=== PATIENT | female | born 1990 | race Caucasian/White ===

== ENCOUNTER 2017-06-19 10:29 | Emergency (ER) | payer MEDICAID ==
[~2017-06-19] VITALS: Ht 165.1 cm; Wt 74.1 kg
[~2017-06-19 10:29] MED LIST: NO HOME MEDS
[2017-06-19] MEDS ORDERED: normal saline 1000ML IV soln IVB ONE (12:15)
[2017-06-19 12:28] LABS: BASOPHILS % (AUTO) 0.6 % (0-1); EOSINOPHILS # (AUTO) 0.1 X10'3 (0-0.9); EOSINOPHILS % (AUTO) 1.9 % (0-6); HEMATOCRIT 42.9 % (35.0-45.0); HEMOGLOBIN 14.8 g/dl (12.0-16.0); LYMPHOCYTES # (AUTO) 2.2 X10'3 (1.1-4.8); LYMPHOCYTES % (AUTO) 28.4 % (21-51); MEAN CORPUSCULAR HGB CONC 34.6 % (33.0-36.5); MEAN CORPUSCULAR VOLUME 98.2 FL (78-98); MEAN PLATELET VOLUME 7.3 FL (7.4-10.4); MONOCYTES # (AUTO) 0.8 X10'3 (0-0.9); MONOCYTES % (AUTO) 10.1 % (2-12); NEUTROPHILS # (AUTO) 4.5 X10'3 (1.8-7.7); PLATELET COUNT 297 X10'3 (140-440); RED BLOOD COUNT 4.37 X10'6 (4.20-5.60); RED CELL DISTRIBUTION WIDTH 12.9 % (11.5-14.5); WHITE BLOOD COUNT 7.7 X10'3 (4.5-11.0)
[2017-06-19 12:48] LABS: D-DIMER < 0.19 MG/L FEU (0-0.50)
[2017-06-19 12:54] LABS: ALANINE AMINOTRANSFERASE 347 U/L (12-78); ALBUMIN 4.3 G/DL (3.4-5.0); ALBUMIN/GLOBULIN RATIO 0.9 (1.1-1.5); ALKALINE PHOSPHATASE 96 IU/L (46-116); ANION GAP 11 (8-16); ASPARTATE AMINO TRANSFERASE 148 U/L (10-37); BILIRUBIN,TOTAL 1.1 MG/DL (0.1-1.0); BLOOD UREA NITROGEN 11 MG/DL (7-18); BUN/CREATININE RATIO 12.9 (6.6-38.0); CALCIUM 9.6 MG/DL (8.5-10.1); CHLORIDE 99 MMOL/L (99-107); CREATININE 0.85 MG/DL (0.40-0.90); ETHANOL < 0.010 GM/DL (0.0-0.010); GLUCOSE 93 MG/DL (70-104); POTASSIUM 3.9 MMOL/L (3.5-5.1); SODIUM 136 MMOL/L (135-145); TOTAL CARBON DIOXIDE 25.7 MMOL/L (24-32); TOTAL PROTEIN 8.9 G/DL (6.4-8.2); eGFR 81 ML/MIN
[2017-06-19 13:32] VITALS: BP 122/80
[2017-06-19 13:53] LABS: URINE AMPHETAMINE SCREEN POSITIVE (Neg); URINE BARBITUATE SCREEN NEGATIVE (Neg); URINE BENZODIAZEPINES SCREEN NEGATIVE (Neg); URINE CANNABINOID SCREEN NEGATIVE (Neg); URINE COCAINE SCREEN NEGATIVE (Neg); URINE METHADONE SCREEN NEGATIVE (Neg); URINE OPIATE SCREEN NEGATIVE (Neg); URINE PHENCYCLIDINE SCREEN NEGATIVE (Neg)
== END 2017-06-19 13:59 | disposition home or self-care (01) ==
LOC: ER 10:29
DX: R00.2 Palpitations (principal); F12.10 Cannabis abuse, uncomplicated; F15.10 Other stimulant abuse, uncomplicated
CPT/HCPCS: 36415; 71045; 80053; 80305; 80320; 84439; 84443; 84484; 85025; 85379; 93005; 96360; 99285; J7030

== ENCOUNTER 2018-05-11 10:17 | Emergency (ER) | payer MEDICAID ==
[2018-05-11 11:39] LABS: HEMATOCRIT 38.3 % (35.0-45.0); HEMOGLOBIN 12.8 g/dl (12.0-16.0); MEAN CORPUSCULAR HEMOGLOBIN 32.3 PG (27.0-31.0); MEAN CORPUSCULAR HGB CONC 33.5 g/dL (33.0-36.5); MEAN CORPUSCULAR VOLUME 96.5 FL (78-98); MEAN PLATELET VOLUME 7.3 FL (7.4-10.4); PLATELET COUNT 310 X10'3 (140-440); RED BLOOD COUNT 3.97 X10'6 (4.20-5.60); RED CELL DISTRIBUTION WIDTH 15.3 % (11.5-14.5); WHITE BLOOD COUNT 7.4 X10'3 (4.5-11.0)
[2018-05-11 13:31] VITALS: BP 104/60
[2018-05-11 13:52] LABS: URINE HCG NEGATIVE (NEG)
[2018-05-11 14:14] LABS: CLARITY,URINE SLIGHTLY CLOUDY (Clear); GLUCOSE, URINE NEGATIVE (Neg); KETONES,URINE NEGATIVE (Neg); LEUKOCYTE ESTERASE ,URINE NEGATIVE (Neg); NITRITES, URINE NEGATIVE (Neg); OCCULT BLOOD,URINE LARGE (Neg); PH,URINE 6.5 (4.8-8.0); PROTEIN,URINE 30 mg/dl (Neg)
[2018-05-11 14:34] LABS: COLOR,URINE Brown (Yellow); UA COLLECTION TYPE CLN CATCH MIDSTREAM
[2018-05-11 14:36] LABS: WBC,URINE 30-50 /HPF (0-4)
[2018-05-11 14:37] LABS: BACTERIA,URINE 1+ /HPF (Neg); RBC,URINE 20-50 /HPF (0-2); SQUAMOUS EPITHELIAL CELL,UR MODERATE /LPF (FEW); WBC CLUMPS,URINE MODERATE /HPF (NEGATIVE)
[2018-05-11] MEDS ORDERED: PHEN-716 PO (15:00)
[2018-05-11] MEDS ORDERED: NITR100C6 PO (15:00)
== END 2018-05-11 15:11 | disposition home or self-care (01) ==
LOC: ER 10:17
DX: N39.0 Urinary tract infection, site not specified (principal); N93.9 Abnormal uterine and vaginal bleeding, unspecified; M79.10 Myalgia, unspecified site; F15.90 Other stimulant use, unspecified, uncomplicated; F12.90 Cannabis use, unspecified, uncomplicated; Z87.440 Personal history of urinary (tract) infections
CPT/HCPCS: 36415; 81001; 81025; 85027; 87088; 99283

== ENCOUNTER 2018-08-10 18:08 | Emergency (ER) | payer MEDICAID, OTHER ==
[~2018-08-10] VITALS: Ht 165.1 cm; Wt 54.5 kg
[~2018-08-10 18:08] MED LIST changes: +NITR100C6 PO; +PHEN-716 PO
[2018-08-10 23:23] LABS: URINE HCG NEGATIVE (NEG)
[2018-08-10 23:24] LABS: CLARITY,URINE SLIGHTLY CLOUDY (Clear); COLOR,URINE YELLOW (Yellow); GLUCOSE, URINE NEGATIVE (Neg); KETONES,URINE TRACE mg/dl (Neg); LEUKOCYTE ESTERASE ,URINE NEGATIVE (Neg); NITRITES, URINE NEGATIVE (Neg); OCCULT BLOOD,URINE NEGATIVE (Neg); PROTEIN,URINE NEGATIVE (Neg)
[2018-08-10 23:40] VITALS: BP 99/56
[2018-08-10 23:47] LABS: UA COLLECTION TYPE CLN CATCH MIDSTREAM
[2018-08-10 23:49] LABS: BACTERIA,URINE NONE SEEN /HPF (Neg); CAL OXALATE CRYSTALS 2+ /HPF (NEGATIVE); MUCUS STRANDS FEW /LPF (Neg); RBC,URINE 0-2 /HPF (0-2); SQUAMOUS EPITHELIAL CELL,UR MANY /LPF (FEW); WBC,URINE 0-4 /HPF (0-4)
[2018-08-11] MEDS ORDERED: LORA1TAB PO (18:43)
== END 2018-08-11 00:17 | disposition home or self-care (01) ==
LOC: ER 18:09
DX: E86.0 Dehydration (principal); M54.5 Low back pain; R30.0 Dysuria; R50.9 Fever, unspecified; F12.90 Cannabis use, unspecified, uncomplicated; F15.90 Other stimulant use, unspecified, uncomplicated; Z79.899 Other long term (current) drug therapy; Z59.0 Homelessness
CPT/HCPCS: 81001; 81025; 99283

== ENCOUNTER 2018-08-11 18:16 | Emergency (ER) | payer MEDICAID, OTHER ==
[~2018-08-11] VITALS: Ht 165.1 cm; Wt 62.5 kg
[2018-08-11 18:22] VITALS: BP 115/62
[2018-08-11] MEDS ORDERED: LORA1TAB PO (18:43)
== END 2018-08-11 18:55 | disposition home or self-care (01) ==
LOC: ER 18:17
DX: F15.10 Other stimulant abuse, uncomplicated (principal); F12.90 Cannabis use, unspecified, uncomplicated; Z79.899 Other long term (current) drug therapy
CPT/HCPCS: 99283

== ENCOUNTER 2018-08-19 02:54 | Emergency (ER) | payer MEDICAID, OTHER ==
[~2018-08-19] VITALS: Ht 165.1 cm; Wt 58.0 kg
[2018-08-19 02:58] VITALS: BP 111/66
--- NOTE | 2018-08-19 03:11 | NUR ---
DR. PASTRANA AT BEDSIDE. NOT BRUISING NOTED TO BACK. PT REPORTS USING METH "BUT NOT THAT OFTEN". SUGGESTED TO PT THAT SHE IS HAVING PARANOIA FROM THE METH. PT WALKED OUT PRIOR TO DC.
== END 2018-08-19 03:21 | disposition home or self-care (01) ==
LOC: ER 02:54
DX: S30.0XXA Contusion of lower back and pelvis, initial encounter (principal); L98.9 Disorder of the skin and subcutaneous tissue, unspecified; F12.90 Cannabis use, unspecified, uncomplicated; F15.90 Other stimulant use, unspecified, uncomplicated; Z79.899 Other long term (current) drug therapy; X58.XXXA Exposure to other specified factors, initial encounter; Y93.89 Activity, other specified; Y92.89 Other specified places as the place of occurrence of the external cause; Y99.8 Other external cause status
CPT/HCPCS: 99281

== ENCOUNTER 2018-08-28 01:30 | Emergency (ER) | payer MEDICAID, OTHER ==
[~2018-08-28] VITALS: Ht 165.1 cm; Wt 57.1 kg
[2018-08-28] MEDS ORDERED: HYDR25SU32 RC (02:22)
[2018-08-28 02:40] VITALS: BP 111/75
[2018-08-28 02:58] LABS: OCCULT BLOOD STOOL POSITIVE (Neg)
== END 2018-08-28 02:50 | disposition home or self-care (01) ==
LOC: ER 01:31
DX: K62.5 Hemorrhage of anus and rectum (principal); M54.5 Low back pain; R10.30 Lower abdominal pain, unspecified; F12.10 Cannabis abuse, uncomplicated; F15.10 Other stimulant abuse, uncomplicated
CPT/HCPCS: 82272; 99283

== ENCOUNTER 2018-08-29 20:00 | Emergency (ER) | payer MEDICAID, OTHER ==
[~2018-08-29] VITALS: Ht 162.6 cm; Wt 55.0 kg
[~2018-08-29 20:00] MED LIST changes: +HYDR25SU32 RC
[2018-08-29 20:03] VITALS: BP 104/72
--- NOTE | 2018-08-29 20:39 | NUR ---
Patient irratic and running around saying she needs help and an IV as her jaw is falling off. She states she has taken meth. Security is at the bedside.
--- NOTE | 2018-08-29 20:49 | NUR ---
Patient LWAB as provider AROLDO Gudino was trying to see her.
--- NOTE | 2018-08-29 20:49 | NUR ---
Patient LWAB as provider na
== END 2018-08-29 20:51 | disposition left against medical advice (07) ==
LOC: ER 20:00
DX: R07.0 Pain in throat (principal); Z53.21 Procedure and treatment not carried out due to patient leaving prior to being seen by health care provider; Z79.899 Other long term (current) drug therapy

== ENCOUNTER 2019-02-16 22:37 | Emergency (ER) | payer OTHER ==
[~2019-02-16] VITALS: Ht 165.1 cm; Wt 52.3 kg
[2019-02-16 22:42] VITALS: BP 125/84
[2019-02-16] MEDS ORDERED: GRIS500T7 PO (22:52)
== END 2019-02-16 23:05 | disposition home or self-care (01) ==
LOC: ER 22:39
DX: B35.0 Tinea barbae and tinea capitis (principal); F31.9 Bipolar disorder, unspecified; F12.90 Cannabis use, unspecified, uncomplicated; F15.90 Other stimulant use, unspecified, uncomplicated; F10.99 Alcohol use, unspecified with unspecified alcohol-induced disorder; Z79.899 Other long term (current) drug therapy; Y90.9 Presence of alcohol in blood, level not specified
CPT/HCPCS: 99283

== ENCOUNTER 2019-02-28 10:59 | Emergency (ER) | payer OTHER ==
[~2019-02-28 10:59] MED LIST changes: +GRIS500T7 PO
[2019-02-28] MEDS ORDERED: CIPR7.5D EACH EAR (15:41)
[2019-02-28] MEDS ORDERED: CIPR-230 PO (15:41)
[2019-02-28] MEDS ORDERED: SULF1TAB49 PO (15:41)
== END 2019-02-28 11:50 | disposition left against medical advice (07) ==
LOC: ER 11:00
DX: H92.09 Otalgia, unspecified ear (principal); Z53.21 Procedure and treatment not carried out due to patient leaving prior to being seen by health care provider

== ENCOUNTER 2019-02-28 13:51 | Emergency (ER) | payer OTHER ==
[~2019-02-28] VITALS: Ht 165.1 cm; Wt 50.0 kg
[~2019-02-28 13:51] MED LIST changes: +LIDOcaine 1% W/epiNEPHrine 1:100,000 20ml vial ONE
[2019-02-28 14:11] VITALS: BP 124/74
[2019-02-28] MEDS ORDERED: Cipro HC otic suspension 10ML bottle EACH EAR STA (15:17)
[2019-02-28] MEDS ORDERED: CIPR-230 PO (15:41)
[2019-02-28] MEDS ORDERED: CIPR7.5D EACH EAR (15:41)
[2019-02-28] MEDS ORDERED: SULF1TAB49 PO (15:41)
== END 2019-02-28 16:13 | disposition home or self-care (01) ==
LOC: ER 13:51
DX: L02.811 Cutaneous abscess of head [any part, except face] (principal); H60.93 Unspecified otitis externa, bilateral; H60.02 Abscess of left external ear; F15.10 Other stimulant abuse, uncomplicated; F31.9 Bipolar disorder, unspecified; F12.90 Cannabis use, unspecified, uncomplicated; F10.99 Alcohol use, unspecified with unspecified alcohol-induced disorder; Z79.899 Other long term (current) drug therapy; Z59.0 Homelessness; Y90.9 Presence of alcohol in blood, level not specified
CPT/HCPCS: 10061; 99284

== ENCOUNTER 2019-02-28 19:21 | Emergency (ER) | payer OTHER ==
[~2019-02-28] VITALS: Ht 165.1 cm; Wt 49.0 kg
[~2019-02-28 19:21] MED LIST changes: +CIPR-230 PO; +CIPR7.5D EACH EAR; -LIDOcaine 1% W/epiNEPHrine 1:100,000 20ml vial ONE; +SULF1TAB49 PO
[2019-02-28 19:46] VITALS: BP 111/46
[2019-02-28] MEDS ORDERED: ciprofloxacin 250mg tablet PO ONE (20:00)
[2019-02-28] MEDS ORDERED: sulfamethoxazole/trimethoprim DS (800/160mg) tablet PO ONE (20:00)
[2019-02-28] MEDS ORDERED: LORazepam 0.5 MG tablet PO ONE (20:30)
--- NOTE | 2019-02-28 20:30 | NUR ---
pt was here a few hours ago for same thing. pt hyper and nervous stating, my wounds is getting bigger.,
== END 2019-02-28 22:24 | disposition home or self-care (01) ==
LOC: ER 19:23
DX: L02.11 Cutaneous abscess of neck (principal); H60.93 Unspecified otitis externa, bilateral; F31.9 Bipolar disorder, unspecified; F41.9 Anxiety disorder, unspecified; F12.90 Cannabis use, unspecified, uncomplicated; F15.90 Other stimulant use, unspecified, uncomplicated; F10.99 Alcohol use, unspecified with unspecified alcohol-induced disorder; Z79.899 Other long term (current) drug therapy; Y90.9 Presence of alcohol in blood, level not specified
CPT/HCPCS: 99283

== ENCOUNTER 2019-12-05 17:59 | Emergency (ER) | payer MEDICAID ==
[~2019-12-05] VITALS: Ht 165.1 cm; Wt 85.0 kg
[~2019-12-05 17:59] MED LIST changes: -CIPR-230 PO; -SULF1TAB49 PO
[2019-12-05 18:18] VITALS: BP 112/63
[2019-12-05] MEDS ORDERED: diphenhydrAMINE 2%/zinc acetate cream TP STA (18:45)
[2019-12-05] MEDS ORDERED: mupirocin 2% ointment 22GM TP STA (18:45)
== END 2019-12-05 19:14 | disposition home or self-care (01) ==
LOC: ER 17:59
DX: T79.9XXA Unspecified early complication of trauma, initial encounter (principal); L29.9 Pruritus, unspecified; R21 Rash and other nonspecific skin eruption; F31.9 Bipolar disorder, unspecified; F12.90 Cannabis use, unspecified, uncomplicated; F15.90 Other stimulant use, unspecified, uncomplicated; Z72.89 Other problems related to lifestyle; Z79.899 Other long term (current) drug therapy
CPT/HCPCS: 99282; 99283

== ENCOUNTER 2021-06-05 18:51 | Inpatient (IN) | payer MEDICAID ==
[~2021-06-05] VITALS: Ht 162.6 cm; Wt 56.8 kg
[2021-06-05 19:58] LABS: BASOPHILS % (AUTO) 0.7 % (0-1); EOSINOPHILS # (AUTO) 0.2 X10'3 (0-0.9); EOSINOPHILS % (AUTO) 3.5 % (0-6); HEMATOCRIT 43.1 % (35.0-45.0); HEMOGLOBIN 14.7 g/dl (12.0-16.0); LYMPHOCYTES # (AUTO) 2.1 X10'3 (1.1-4.8); MEAN CORPUSCULAR HGB CONC 34.1 g/dL (33.0-36.5); MEAN CORPUSCULAR VOLUME 96.8 FL (78-98); MONOCYTES # (AUTO) 0.7 X10'3 (0-0.9); NEUTROPHILS # (AUTO) 3.1 X10'3 (1.8-7.7); NEUTROPHILS % (AUTO) 49.8 % (42-75); PLATELET COUNT 429 X10'3 (140-440); RED BLOOD COUNT 4.46 X10'6 (4.20-5.60); WHITE BLOOD COUNT 6.1 X10'3 (4.5-11.0)
[2021-06-05 20:24] LABS: ALANINE AMINOTRANSFERASE 19 U/L (12-78); ALBUMIN 3.4 G/DL (3.4-5.0); ALBUMIN/GLOBULIN RATIO 0.7 (1.1-1.5); ALKALINE PHOSPHATASE 90 IU/L (46-116); ANION GAP 9 (8-16); ASPARTATE AMINO TRANSFERASE 18 U/L (10-37); BILIRUBIN,TOTAL 0.5 MG/DL (0.1-1.0); BLOOD UREA NITROGEN 8 MG/DL (7-18); BUN/CREATININE RATIO 10.5 (6.6-38.0); CALCIUM 9.5 MG/DL (8.5-10.1); CHLORIDE 104 MMOL/L (99-107); CREATININE 0.76 MG/DL (0.40-0.90); GLUCOSE 116 MG/DL (70-104); SODIUM 139 MMOL/L (135-145); TOTAL CARBON DIOXIDE 26.2 MMOL/L (24-32); TOTAL PROTEIN 8.2 G/DL (6.4-8.2); eGFR 89 ML/MIN
[2021-06-05] MEDS ORDERED: DOXYCYCLINE 100MG CAPSULE PO STA (22:57)
[2021-06-05] MEDS ORDERED: vancomycin/NS 1 GM ADD-VANTAGE 250 ML IV ONE (23:00)
[2021-06-06] MEDS ORDERED: magnesium hydroxide 30ml (MOM) UD suspension PO PRN (00:35)
[2021-06-06] MEDS ORDERED: mag hydrox/Alum hydrox/simeth 30ml oral suspension PO PRN (00:35)
[2021-06-06] MEDS ORDERED: ondansetron/PF 4mg/2ml inj IV PRN (00:35)
[2021-06-06] MEDS ORDERED: magnesium 4gm in 100ml NS 100 ML IV PRN (00:35)
[2021-06-06] MEDS ORDERED: acetaminophen 325mg tablet PO PRN (00:35)
[2021-06-06] MEDS ORDERED: morphine 2 MG/ML inj. syringe IV PRN ×2 (00:35)
[2021-06-06] MEDS ORDERED: potassium Cl 20 mEq SR tablet PO PRN ×2 (00:35)
[2021-06-06] MEDS ORDERED: HYDROcodone/acetaminophen 10/325mg tab PO PRN (00:35)
[2021-06-06] MEDS ORDERED: magnesium Cl slow-release 64mg tablet PO PRN (00:35)
[2021-06-06] MEDS ORDERED: potassium CL 10mEq/100ml bag 100 ML IV PRN (00:35)
[2021-06-06] MEDS ORDERED: magnesium 2GM in 50ml NS 50 ML IV PRN (00:35)
[2021-06-06] MEDS ORDERED: rifampin 300mg capsule PO ONE (00:48)
[2021-06-06] MEDS: HYDROcodone/acetaminophen 5mg/325mg tablet PO PRN ×2 (01:11→14:44)
[2021-06-06 01:15] LABS: HEMOGLOBIN A1C 5.4 % (4.5-6.2)
[2021-06-06] MEDS ORDERED: NO HOME MEDS (01:16)
[2021-06-06 01:36] LABS: URINE AMPHETAMINE SCREEN POSITIVE (Neg); URINE BARBITUATE SCREEN NEGATIVE (Neg); URINE BENZODIAZEPINES SCREEN NEGATIVE (Neg); URINE CANNABINOID SCREEN POSITIVE (Neg); URINE COCAINE SCREEN NEGATIVE (Neg); URINE METHADONE SCREEN NEGATIVE (Neg); URINE OPIATE SCREEN NEGATIVE (Neg); URINE PHENCYCLIDINE SCREEN NEGATIVE (Neg)
[2021-06-06 02:04] VITALS: BP 123/77
--- NOTE | 2021-06-06 06:34 | NUR ---
Patient admitted from ER in stable condition for left middle finger cellulitis. All medications received from ER. Report given to HILARY Wright, all questions answered for continuation of care.
[2021-06-06] MEDS: K and/or MAG REPLACEMENT MC SCH ×2 (07:55→19:06)
[2021-06-06] MEDS: nicotine 14mg patch - 24hr TD SCH (08:00)
[2021-06-06] MEDS: heparin, porcine 5000 units/ml vial SQ SCH ×2 (08:01→19:15)
[2021-06-06 08:12] LABS: URINE HCG NEGATIVE (NEG)
[2021-06-06] MEDS: VANCOMYCIN 1GM/200ML IVPB 200 ML IV SCH ×2 (10:38→22:47)
--- NOTE | 2021-06-06 14:15 | NUR ---
WOUND INFECTION EDUCATION PROVIDED BY WOUND CARE 1. Patient instructed to call their primary doctor, or go the ED immediately if any of the following symptoms occur: * Increased pain in wound * Increase in drainage from the wound * Redness in the skin surrounding the wound * Warmth in the skin surrounding the wound * Bleeding from the wound * Temperature of 101 or greater 2. If any of these occur while in the hospital tell a nurse immediately. Addendum: 06/06/21 at 1415 by Belia De La Cruz RN Amended: Links added.
[2021-06-06 18:00] VITALS: BP 103/60
[2021-06-06] MEDS ORDERED: temazepam 15mg capsule PO PRN (21:00)
[2021-06-07 00:01] VITALS: BP 94/65
--- NOTE | 2021-06-07 06:48 | NUR ---
Problems reprioritized. Patient report given, questions answered & plan of care reviewed with HILARY Gutierrez, for continuation of care.
[2021-06-07 06:58] LABS: BASOPHILS % (AUTO) 0.7 % (0-1); EOSINOPHILS # (AUTO) 0.1 X10'3 (0-0.9); EOSINOPHILS % (AUTO) 3.6 % (0-6); HEMATOCRIT 37.6 % (35.0-45.0); HEMOGLOBIN 12.8 g/dl (12.0-16.0); LYMPHOCYTES # (AUTO) 2.1 X10'3 (1.1-4.8); LYMPHOCYTES % (AUTO) 50.9 % (21-51); MEAN CORPUSCULAR HEMOGLOBIN 32.4 PG (27.0-31.0); MEAN CORPUSCULAR HGB CONC 33.9 g/dL (33.0-36.5); MEAN CORPUSCULAR VOLUME 95.6 FL (78-98); MEAN PLATELET VOLUME 7.9 FL (7.4-10.4); MONOCYTES # (AUTO) 0.4 X10'3 (0-0.9); MONOCYTES % (AUTO) 8.9 % (2-12); NEUTROPHILS # (AUTO) 1.5 X10'3 (1.8-7.7); NEUTROPHILS % (AUTO) 35.9 % (42-75); PLATELET COUNT 377 X10'3 (140-440); RED BLOOD COUNT 3.94 X10'6 (4.20-5.60); RED CELL DISTRIBUTION WIDTH 12.8 % (11.5-14.5); WHITE BLOOD COUNT 4.1 X10'3 (4.5-11.0)
[2021-06-07 07:00] VITALS: BP 119/73
[2021-06-07 07:25] LABS: ALANINE AMINOTRANSFERASE 15 U/L (12-78); ALBUMIN 2.8 G/DL (3.4-5.0); ALBUMIN/GLOBULIN RATIO 0.7 (1.1-1.5); ALKALINE PHOSPHATASE 67 IU/L (46-116); ANION GAP 8 (8-16); ASPARTATE AMINO TRANSFERASE 10 U/L (10-37); BILIRUBIN,TOTAL 0.3 MG/DL (0.1-1.0); BLOOD UREA NITROGEN 8 MG/DL (7-18); BUN/CREATININE RATIO 13.3 (6.6-38.0); CALCIUM 8.6 MG/DL (8.5-10.1); CHLORIDE 107 MMOL/L (99-107); GLUCOSE 83 MG/DL (70-104); POTASSIUM 3.8 MMOL/L (3.5-5.1); SODIUM 140 MMOL/L (135-145); TOTAL CARBON DIOXIDE 24.6 MMOL/L (24-32); eGFR > 90 ML/MIN
--- NOTE | 2021-06-07 07:58 | NUR ---
Page to Dr Miller to request ortho/surgical debridement consult for pt due to > 80% necrotic tissue to finger. Pt will not be able to be seen in outpatient wound care until late next week. Report to primary nurse of this. Addendum: 06/07/21 at 0800 by Pippa Canas RN Amended: Links added.
[2021-06-07] MEDS: K and/or MAG REPLACEMENT MC SCH ×2 (08:00→19:35)
[2021-06-07] MEDS: heparin, porcine 5000 units/ml vial SQ SCH ×2 (10:03→19:45)
[2021-06-07] MEDS: nicotine 14mg patch - 24hr TD SCH (10:03)
[2021-06-07] MEDS ORDERED: VANCOMYCIN LEVEL IV ONE (10:30)
[2021-06-07 11:00] VITALS: BP 112/69
--- NOTE | 2021-06-07 11:06 | NUR ---
Both patient and Dr. Miller were notified about the positive MRSA nasal swab done
--- NOTE | 2021-06-07 11:41 | NUR ---
Called lab to remind them about the Vanco trough level so I can give the Vancomycin IV
[2021-06-07] MEDS: VANCOMYCIN 1GM/200ML IVPB 200 ML IV SCH (13:38)
[2021-06-07] MEDS ORDERED: vancomycin inj 500 MG in normal saline 100ml IV soln 100 ML IV ONE (15:00)
[2021-06-07] MEDS: metroNIDAZOLE-Flagyl 500mg/NS 100 ML IV SCH ×2 (17:11→23:58)
[2021-06-07] MEDS: CefTRIAXone/D5W-Rocephin 1gm 50 ML IV SCH (19:49)
[2021-06-08] VITALS: BP 99/59
[2021-06-08 05:58] LABS: BASOPHILS % (AUTO) 0.9 % (0-1); EOSINOPHILS # (AUTO) 0.1 X10'3 (0-0.9); HEMATOCRIT 37.7 % (35.0-45.0); HEMOGLOBIN 12.6 g/dl (12.0-16.0); LYMPHOCYTES # (AUTO) 2.2 X10'3 (1.1-4.8); LYMPHOCYTES % (AUTO) 50.6 % (21-51); MEAN CORPUSCULAR HEMOGLOBIN 32.1 PG (27.0-31.0); MEAN CORPUSCULAR HGB CONC 33.3 g/dL (33.0-36.5); MEAN CORPUSCULAR VOLUME 96.4 FL (78-98); MEAN PLATELET VOLUME 7.5 FL (7.4-10.4); MONOCYTES # (AUTO) 0.5 X10'3 (0-0.9); MONOCYTES % (AUTO) 11.3 % (2-12); NEUTROPHILS # (AUTO) 1.5 X10'3 (1.8-7.7); NEUTROPHILS % (AUTO) 34.2 % (42-75); PLATELET COUNT 368 X10'3 (140-440); RED BLOOD COUNT 3.91 X10'6 (4.20-5.60); RED CELL DISTRIBUTION WIDTH 13.1 % (11.5-14.5); WHITE BLOOD COUNT 4.4 X10'3 (4.5-11.0)
[2021-06-08 06:28] LABS: ALANINE AMINOTRANSFERASE 14 U/L (12-78); ALBUMIN 2.7 G/DL (3.4-5.0); ALBUMIN/GLOBULIN RATIO 0.7 (1.1-1.5); ALKALINE PHOSPHATASE 63 IU/L (46-116); ANION GAP 7 (8-16); ASPARTATE AMINO TRANSFERASE 15 U/L (10-37); BILIRUBIN,TOTAL 0.2 MG/DL (0.1-1.0); BLOOD UREA NITROGEN 8 MG/DL (7-18); BUN/CREATININE RATIO 13.1 (6.6-38.0); CALCIUM 8.6 MG/DL (8.5-10.1); CHLORIDE 106 MMOL/L (99-107); CREATININE 0.61 MG/DL (0.40-0.90); GLUCOSE 91 MG/DL (70-104); POTASSIUM 3.6 MMOL/L (3.5-5.1); SODIUM 138 MMOL/L (135-145); TOTAL CARBON DIOXIDE 24.9 MMOL/L (24-32); TOTAL PROTEIN 6.6 G/DL (6.4-8.2); eGFR > 90 ML/MIN
--- NOTE | 2021-06-08 06:30 | NUR ---
Patient in room [facility]. I have received report from Jae RICHARD and had the opportunity to ask questions and assume patient care.
--- NOTE | 2021-06-08 06:49 | NUR ---
Problems reprioritized. Patient report given, questions answered & plan of care reviewed with HILARY Perez.
[2021-06-08 07:00] VITALS: BP 109/51
[2021-06-08] MEDS: nicotine 14mg patch - 24hr TD SCH ×2 (08:00→10:03)
[2021-06-08] MEDS: K and/or MAG REPLACEMENT MC SCH ×2 (08:00→19:47)
[2021-06-08] MEDS ORDERED: normal saline 500ml IV soln 500 ML IV PRN (08:40)
[2021-06-08] MEDS: metroNIDAZOLE-Flagyl 500mg/NS 100 ML IV SCH ×3 (08:52→23:45)
[2021-06-08] MEDS: CefTRIAXone/D5W-Rocephin 1gm 50 ML IV SCH (08:53)
[2021-06-08] MEDS: heparin, porcine 5000 units/ml vial SQ SCH ×2 (08:54→19:49)
[2021-06-08 12:04] VITALS: BP 105/61
--- NOTE | 2021-06-08 12:32 | NUR ---
wound culture taken from left hand, third digit. wound dressing replaced with Xeroform and gauze. Patient tolerated well.
[2021-06-08] MEDS: HYDROcodone/acetaminophen 5mg/325mg tablet PO PRN (13:17)
--- NOTE | 2021-06-08 16:54 | NUR ---
Student documentation: I have reviewed and agree with all interventions, assessments performed and documented by Leticia GUTIERREZ.
--- NOTE | 2021-06-08 18:06 | NUR ---
Problems reprioritized. Patient report given, questions answered & plan of care reviewed with HILARY Rowe
[2021-06-08 19:00] VITALS: BP 112/61
[2021-06-08] MEDS ORDERED: CefTRIAXone inj 1,000 MG in normal saline 100ml IV soln 100 ML IV SCH (20:04)
[2021-06-09] VITALS: BP 108/67
[2021-06-09] MEDS ORDERED: VANCOMYCIN LEVEL IV ONE ×2 (01:30→13:30)
[2021-06-09 03:01] LABS: BASOPHILS % (AUTO) 0.1 % (0-1); EOSINOPHILS # (AUTO) 0.1 X10'3 (0-0.9); EOSINOPHILS % (AUTO) 2.8 % (0-6); HEMATOCRIT 36.2 % (35.0-45.0); HEMOGLOBIN 12.6 g/dl (12.0-16.0); LYMPHOCYTES # (AUTO) 2.5 X10'3 (1.1-4.8); LYMPHOCYTES % (AUTO) 50.8 % (21-51); MEAN CORPUSCULAR HEMOGLOBIN 32.7 PG (27.0-31.0); MEAN CORPUSCULAR HGB CONC 34.8 g/dL (33.0-36.5); MEAN PLATELET VOLUME 7.1 FL (7.4-10.4); MONOCYTES # (AUTO) 0.5 X10'3 (0-0.9); MONOCYTES % (AUTO) 10.5 % (2-12); NEUTROPHILS # (AUTO) 1.8 X10'3 (1.8-7.7); NEUTROPHILS % (AUTO) 35.8 % (42-75); PLATELET COUNT 350 X10'3 (140-440); RED BLOOD COUNT 3.85 X10'6 (4.20-5.60); RED CELL DISTRIBUTION WIDTH 12.7 % (11.5-14.5); WHITE BLOOD COUNT 4.9 X10'3 (4.5-11.0)
[2021-06-09 03:13] LABS: ALANINE AMINOTRANSFERASE 16 U/L (12-78); ALBUMIN 2.8 G/DL (3.4-5.0); ALBUMIN/GLOBULIN RATIO 0.7 (1.1-1.5); ALKALINE PHOSPHATASE 63 IU/L (46-116); ANION GAP 9 (8-16); ASPARTATE AMINO TRANSFERASE 19 U/L (10-37); BILIRUBIN,TOTAL 0.1 MG/DL (0.1-1.0); BLOOD UREA NITROGEN 9 MG/DL (7-18); BUN/CREATININE RATIO 14.8 (6.6-38.0); CALCIUM 8.8 MG/DL (8.5-10.1); CHLORIDE 106 MMOL/L (99-107); CREATININE 0.61 MG/DL (0.40-0.90); GLUCOSE 94 MG/DL (70-104); POTASSIUM 3.7 MMOL/L (3.5-5.1); SODIUM 140 MMOL/L (135-145); TOTAL CARBON DIOXIDE 24.9 MMOL/L (24-32); TOTAL PROTEIN 6.7 G/DL (6.4-8.2); VANCOMYCIN,TROUGH 11.8 UG/ML (6.0-14.0); eGFR > 90 ML/MIN
--- NOTE | 2021-06-09 06:46 | NUR ---
Problems reprioritized. Patient report given, questions answered & plan of care reviewed with Savanna RICHARD.
[2021-06-09 07:00] VITALS: BP 103/67
[2021-06-09] MEDS: metroNIDAZOLE-Flagyl 500mg/NS 100 ML IV SCH (08:05)
[2021-06-09] MEDS: heparin, porcine 5000 units/ml vial SQ SCH (08:22)
[2021-06-09] MEDS: K and/or MAG REPLACEMENT MC SCH (08:30)
[2021-06-09] MEDS ORDERED: LINE600T11 PO (11:26)
[2021-06-09] MEDS ORDERED: HYDR-3965 PO (11:26)
--- NOTE | 2021-06-09 13:02 | NUR ---
Student documentation: I have reviewed and agree with all interventions and documented by SN PHILL.
--- NOTE | 2021-06-09 13:59 | NUR ---
Wound care provided to the patients left third finger. Dressing changed with NS rinse, Xeroform, and gauze. Patient tolerated well. Wound has no surrounding erythema or red-streaking. Provided [id number] education to the patient on how to change her dressings at home as well as the importance of following up with wound care. Patient verbalized understanding. No questions regarding wound care at this time. New wound picture taken and charted.
--- NOTE | 2021-06-09 14:18 | NUR ---
PATIENT STABLE AND APPROPRIATE FOR DISCHARGE, IV TAKEN OUT, DISCHARGE PICTURES OF FINGER TAKEN AND DRESSING CHANGED, EDUCATION GIVEN, NEW MEDS E-SCRIPTED TO PREFERRED PHARMACY, ALL BELONGINGS SENT WITH PATIENT, [facility] CALLED FOR PATIENT, PATIENT WALKED TO LOBBY TO AWAIT FOR INCOMING [facility] WHERE BUFFERER WILL TAKE PATIENT TO THEIR DESTINATION
[2021-06-09] MEDS ORDERED: metroNIDAZOLE 500mg tablet PO SCH (16:00)
== END 2021-06-09 14:27 | disposition home or self-care (01) | DRG 383 ==
LOC: ER 18:52 → ED HOLD 06-06 00:39 → UNDOADMIN 06-06 00:39 → MERGE 06-06 00:54 → ED HOLD 06-06 00:54 → SUR 3N 06-06 01:17
PROVIDERS: ADMIT Internal Medicine; ATTEND Internal Medicine
DX: L03.012 Cellulitis of left finger (principal); F17.200 Nicotine dependence, unspecified, uncomplicated; S61.203A Unspecified open wound of left middle finger without damage to nail, initial encounter; X58.XXXA Exposure to other specified factors, initial encounter; Z72.89 Other problems related to lifestyle; Y93.89 Activity, other specified; Y92.89 Other specified places as the place of occurrence of the external cause; Y99.8 Other external cause status
CPT/HCPCS: 36415; 73140; 80053; 80202; 80305; 80320; 81025; 83036; 83605; 84145; 85025; 87040; 87070; 87077; 87081; 87186; 96365; 99285; G0378; J0696; J1644; J2270; J3370; J3490; J7040

== ENCOUNTER 2022-02-08 12:10 | Emergency (ER) | payer MEDICAID ==
[~2022-02-08] VITALS: Ht 165.1 cm; Wt 56.0 kg
[2022-02-08 13:06] VITALS: BP 105/73
[2022-02-08] MEDS ORDERED: SULF1TAB45 PO (13:07)
== END 2022-02-08 13:23 | disposition home or self-care (01) ==
LOC: ER 12:12
DX: L08.9 Local infection of the skin and subcutaneous tissue, unspecified (principal); F31.9 Bipolar disorder, unspecified; F12.90 Cannabis use, unspecified, uncomplicated; F15.20 Other stimulant dependence, uncomplicated
CPT/HCPCS: 99283

== ENCOUNTER 2022-02-24 14:55 | Emergency (ER) | payer MEDICAID | END 2022-02-24 18:19 | disposition left against medical advice (07) | LOC: ER 14:56 | DX: Z00.00 Encounter for general adult medical examination without abnormal findings (principal); Z53.21 Procedure and treatment not carried out due to patient leaving prior to being seen by health care provider ==

== ENCOUNTER 2022-03-04 21:11 | Emergency (ER) | payer MEDICAID ==
[~2022-03-04] VITALS: Ht 165.1 cm; Wt 56.8 kg
[2022-03-04 21:13] VITALS: BP 121/42
[2022-03-05] MEDS ORDERED: ondansetron 4mg rapidly disintigrating tab PO ONE (00:05)
[2022-03-05] MEDS ORDERED: TETanus/Pertussis (Acell)/Diphther VAC/PF (Tdap-Adult) 0.5ml syringe IMVAC ONE (00:05)
== END 2022-03-05 01:28 | disposition left against medical advice (07) ==
LOC: ER 21:12
DX: S91.311A Laceration without foreign body, right foot, initial encounter (principal); F31.9 Bipolar disorder, unspecified; F12.90 Cannabis use, unspecified, uncomplicated; F15.20 Other stimulant dependence, uncomplicated; W45.8XXA Other foreign body or object entering through skin, initial encounter; Y93.89 Activity, other specified; Y92.89 Other specified places as the place of occurrence of the external cause; Y99.8 Other external cause status
CPT/HCPCS: 99281

== ENCOUNTER 2022-10-01 06:21 | Emergency (ER) | payer MEDICAID ==
[~2022-10-01] VITALS: Ht 170.2 cm; Wt 60.0 kg
[2022-10-01 06:28] VITALS: BP 116/69
== END 2022-10-01 07:59 | disposition left against medical advice (07) ==
LOC: ER 06:26
DX: M79.673 Pain in unspecified foot (principal); Z53.21 Procedure and treatment not carried out due to patient leaving prior to being seen by health care provider
CPT/HCPCS: 99281

== ENCOUNTER 2023-05-05 12:34 | Emergency (ER) | payer SELFPAY ==
[~2023-05-05] VITALS: Ht 160 cm; Wt 60.0 kg
[2023-05-05 12:36] VITALS: BP 103/70; PULSE 98; RESP 20; TEMP 98.7; O2SAT 99
== END 2023-05-05 14:28 ==
LOC: ER 12:34
DX: S00.33XA Contusion of nose, initial encounter (principal); F12.90 Cannabis use, unspecified, uncomplicated; F15.90 Other stimulant use, unspecified, uncomplicated; Z79.2 Long term (current) use of antibiotics; Z79.899 Other long term (current) drug therapy; W22.8XXA Striking against or struck by other objects, initial encounter; Y93.89 Activity, other specified; Y92.89 Other specified places as the place of occurrence of the external cause; Y99.8 Other external cause status
CPT/HCPCS: 99283

== ENCOUNTER 2023-06-02 15:17 | Emergency (ER) | payer MEDICAID ==
[~2023-06-02] VITALS: Ht 165.1 cm; Wt 58.1 kg
[2023-06-02] MEDS ORDERED: acyclovir inj 1,000 MG in normal saline 250ml IV soln 230 ML IV ONE (16:40)
[2023-06-02] MEDS: ketorolac trometh. 30mg/ml inj. IV ONE (16:50)
[2023-06-02] MEDS ORDERED: DOCU-148 PO (16:58)
[2023-06-02] MEDS ORDERED: VALA100031 PO (16:58)
[2023-06-02] MEDS ORDERED: LIDO28.35 TOP (16:58)
[2023-06-02] MEDS: acyclovir inj 1,000 MG in normal saline 250ml IV soln 250 ML IV ONE (17:38)
[2023-06-02 18:47] VITALS: BP 128/67; PULSE 113; RESP 18; TEMP 98; O2SAT 99
[2023-06-03] MEDS ORDERED: acyclovir inj 1,000 MG in normal saline 250ml IV soln 230 ML IV SCH
== END 2023-06-02 19:10 | disposition home or self-care (01) ==
LOC: ER 15:18
DX: K62.89 Other specified diseases of anus and rectum (principal); B00.9 Herpesviral infection, unspecified; F31.9 Bipolar disorder, unspecified; F12.90 Cannabis use, unspecified, uncomplicated; F15.90 Other stimulant use, unspecified, uncomplicated; Z79.2 Long term (current) use of antibiotics; Z79.899 Other long term (current) drug therapy
CPT/HCPCS: 96365; 96375; 99284; J0133; J1885; J7050

== ENCOUNTER 2023-11-27 22:37 | Emergency (ER) | payer SELFPAY ==
[~2023-11-27] VITALS: Ht 165.1 cm; Wt 70.0 kg
[~2023-11-27 22:37] MED LIST changes: +DOCU-148 PO; +LIDO28.35 TOP; +VALA100031 PO
[2023-11-27] MEDS: ziprasidone IM 20mg inj **IM only IM ONE (22:55)
[2023-11-27] MEDS: epiNEPHrine 1 mg/ml inj IM STA (22:55)
[2023-11-27] MEDS: diphenhydrAMINE 50 mg/ml inj IM STA (22:59)
[2023-11-27] MEDS: dexamethasone sod phosphate 10mg/ml inj IM STA (23:04)
[2023-11-27 23:17] VITALS: TEMP 98
--- NOTE | 2023-11-28 00:17 | NUR ---
patient lying on bed on prone positio; Addendum: 11/28/23 at 0018 by RTELESLYO patient lying on bed in prone position during assessemt; pt not being released since pt is emotionally unstable and combative at this time; patient is not responding when called and non cooperative; patient continued to be monitored
--- NOTE | 2023-11-28 03:27 | NUR ---
patient still sleeping but responsive; and able to verbalize "yes" from my question "can you breathe properly?". monitored continuously
--- NOTE | 2023-11-28 05:15 | NUR ---
patient is awake and responsive and requests yogurt and juice patient verbalized the releif of lip swelling
--- NOTE | 2023-11-28 06:46 | NUR ---
ASSUMED PT CARE. PT RESTING ON SIDE WITH BLANKET PULLED OVER HE HEAD. PT SAT UPRIGHT WHEN I WALKED INTO THE ROOM, ASKING FOR LUNCH. I REORIENTED HER TO THE TIME AND DATE. PT ASKED FOR JUICE, WHICH WAS PROVIDED. PT WENT BACK TO SLEEP. NO S/S OF ACUTE DISTRESS AT THIS TIME. AIRWAY PATENT.
[2023-11-28 09:09] VITALS: BP 100/52; PULSE 69; RESP 16; O2SAT 98
== END 2023-11-28 09:15 | disposition home or self-care (01) ==
LOC: ER 22:38
DX: F15.10 Other stimulant abuse, uncomplicated (principal); F29 Unspecified psychosis not due to a substance or known physiological condition; F12.90 Cannabis use, unspecified, uncomplicated; F31.9 Bipolar disorder, unspecified; Z79.899 Other long term (current) drug therapy; Z79.52 Long term (current) use of systemic steroids; Z79.2 Long term (current) use of antibiotics; Z72.89 Other problems related to lifestyle
CPT/HCPCS: 96372; 99285; J0171; J1100; J1200; J3486

== ENCOUNTER 2024-01-23 21:29 | Emergency (ER) | payer OTHER ==
[~2024-01-23] VITALS: Ht 160 cm; Wt 54.5 kg
[2024-01-23 21:50] VITALS: BP 118/70; PULSE 105; TEMP 98.7; O2SAT 100
[2024-01-23 23:11] VITALS: RESP 18
== END 2024-01-23 23:13 | disposition left against medical advice (07) ==
LOC: ER 21:30
DX: Z00.00 Encounter for general adult medical examination without abnormal findings (principal); Z53.21 Procedure and treatment not carried out due to patient leaving prior to being seen by health care provider

== ENCOUNTER 2024-04-14 15:16 | Emergency (ER) | payer MEDICAID ==
[~2024-04-14] VITALS: Ht 175.3 cm; Wt 68.2 kg
[2024-04-14 16:26] LABS: BASOPHILS % (AUTO) 0.6 % (0-1); EOSINOPHILS # (AUTO) 0.3 X10'3 (0-0.9); EOSINOPHILS % (AUTO) 4.4 % (0-6); HEMATOCRIT 31.7 % (35.0-45.0); HEMOGLOBIN 10.7 g/dl (12.0-16.0); LYMPHOCYTES # (AUTO) 2.3 X10'3 (1.1-4.8); MEAN CORPUSCULAR HEMOGLOBIN 32.8 PG (27.0-31.0); MEAN CORPUSCULAR HGB CONC 33.7 g/dL (33.0-36.5); MEAN CORPUSCULAR VOLUME 97.3 FL (78-98); MEAN PLATELET VOLUME 6.7 FL (7.4-10.4); MONOCYTES # (AUTO) 0.7 X10'3 (0-0.9); MONOCYTES % (AUTO) 11.3 % (2-12); NEUTROPHILS # (AUTO) 3.3 X10'3 (1.8-7.7); NEUTROPHILS % (AUTO) 49.7 % (42-75); PLATELET COUNT 286 X10'3 (140-440); RED BLOOD COUNT 3.26 X10'6 (4.20-5.60); WHITE BLOOD COUNT 6.6 X10'3 (4.5-11.0)
[2024-04-14 16:52] LABS: ALBUMIN 2.9 G/DL (3.4-5.0); ANION GAP 8 (8-16); BLOOD UREA NITROGEN 18 MG/DL (7-18); BUN/CREATININE RATIO 23.7 (10.0-20.0); CALCIUM 8.4 MG/DL (8.5-10.1); CHLORIDE 105 MMOL/L (99-107); CREATININE 0.76 MG/DL (0.40-0.90); ETHANOL < 10 MG/DL (<10); GLUCOSE 76 MG/DL (70-104); POTASSIUM 3.6 MMOL/L (3.5-5.1); SODIUM 138 MMOL/L (135-145); THYROID STIMULATING HORMONE 1.17 ulU/ml (0.34-4.50); eCRCL 111 ML/MIN; eGFR 88 ML/MIN
[2024-04-14 17:42] LABS: URINE HCG POSITIVE (NEG)
[2024-04-14 17:43] LABS: BILIRUBIN,URINE NEGATIVE (Neg); CLARITY,URINE SLIGHTLY CLOUDY (Clear); COLOR,URINE YELLOW (Yellow); GLUCOSE, URINE NEGATIVE (Neg); KETONES,URINE NEGATIVE (Neg); LEUKOCYTE ESTERASE ,URINE NEGATIVE (Neg); NITRITES, URINE NEGATIVE (Neg); OCCULT BLOOD,URINE NEGATIVE (Neg); PH,URINE 6.5 (4.8-8.0); PROTEIN,URINE NEGATIVE (Neg); UROBILINOGEN,URINE 0.2 E.U/dL (0.2-1.0)
[2024-04-14 17:45] LABS: UA COLLECTION TYPE NON-SPECIFIED
[2024-04-14 17:48] LABS: BACTERIA,URINE FEW /HPF (Neg); MUCUS STRANDS FEW /LPF (Neg); SQUAMOUS EPITHELIAL CELL,UR MANY /LPF (FEW); TRANSITIONAL EPI CELLS,URINE FEW /HPF; WBC,URINE 0-4 /HPF (0-4)
[2024-04-14 17:49] LABS: URINE AMPHETAMINE SCREEN POSITIVE (Neg); URINE BARBITUATE SCREEN NEGATIVE (Neg); URINE BENZODIAZEPINES SCREEN NEGATIVE (Neg); URINE CANNABINOID SCREEN NEGATIVE (Neg); URINE COCAINE SCREEN NEGATIVE (Neg); URINE METHADONE SCREEN NEGATIVE (Neg); URINE OPIATE SCREEN NEGATIVE (Neg); URINE PHENCYCLIDINE SCREEN NEGATIVE (Neg)
[2024-04-14 19:13] LABS: BETA HCG,QUANTITATIVE < 1.0 mIU/ml
[2024-04-15 05:54] VITALS: BP 111/68; PULSE 80; RESP 14; TEMP 97.4; O2SAT 100
== END 2024-04-15 11:15 | disposition home or self-care (01) ==
LOC: ER 15:17
DX: Z00.8 Encounter for other general examination (principal); F31.9 Bipolar disorder, unspecified; F12.90 Cannabis use, unspecified, uncomplicated; F15.90 Other stimulant use, unspecified, uncomplicated; Z87.440 Personal history of urinary (tract) infections; Z20.822 Contact with and (suspected) exposure to COVID-19
CPT/HCPCS: 36415; 80048; 80305; 80320; 81001; 81025; 84443; 84702; 85025; 87811; 99283

== ENCOUNTER 2024-05-18 06:09 | Emergency (ER) | payer MEDICAID ==
[~2024-05-18] VITALS: Ht 162.6 cm; Wt 54.5 kg
[~2024-05-18 06:09] MED LIST changes: -CIPR7.5D EACH EAR; -DOCU-148 PO; -GRIS500T7 PO; -HYDR25SU32 RC; -LIDO28.35 TOP; -NITR100C6 PO; -PHEN-716 PO; -VALA100031 PO
[2024-05-18 06:22] VITALS: BP 117/65; PULSE 79; TEMP 97.9; O2SAT 100
[2024-05-18 07:03] VITALS: RESP 15
[2024-05-18 07:16] LABS: BASOPHILS % (AUTO) 0.4 % (0-1); EOSINOPHILS # (AUTO) 0.2 X10'3 (0-0.9); EOSINOPHILS % (AUTO) 1.8 % (0-6); HEMATOCRIT 35.2 % (35.0-45.0); LYMPHOCYTES # (AUTO) 2.2 X10'3 (1.1-4.8); LYMPHOCYTES % (AUTO) 24.6 % (21-51); MEAN CORPUSCULAR HEMOGLOBIN 32.3 PG (27.0-31.0); MEAN CORPUSCULAR HGB CONC 34.1 g/dL (33.0-36.5); MEAN CORPUSCULAR VOLUME 94.8 FL (78-98); MEAN PLATELET VOLUME 6.6 FL (7.4-10.4); MONOCYTES # (AUTO) 0.9 X10'3 (0-0.9); MONOCYTES % (AUTO) 9.6 % (2-12); NEUTROPHILS # (AUTO) 5.8 X10'3 (1.8-7.7); NEUTROPHILS % (AUTO) 63.6 % (42-75); PLATELET COUNT 362 X10'3 (140-440); RED BLOOD COUNT 3.72 X10'6 (4.20-5.60); RED CELL DISTRIBUTION WIDTH 14.5 % (11.5-14.5); WHITE BLOOD COUNT 9.1 X10'3 (4.5-11.0)
[2024-05-18 07:17] LABS: ALBUMIN 3.1 G/DL (3.4-5.0); ANION GAP 8 (8-16); BLOOD UREA NITROGEN 16 MG/DL (7-18); CHLORIDE 104 MMOL/L (99-107); ETHANOL < 10 MG/DL (<10); GLUCOSE 86 MG/DL (70-104); POTASSIUM 3.8 MMOL/L (3.5-5.1); SODIUM 136 MMOL/L (135-145); TOTAL CARBON DIOXIDE 23.8 MMOL/L (24-32); eCRCL 138 ML/MIN; eGFR > 90 ML/MIN
[2024-05-18 07:30] LABS: URINE HCG POSITIVE (NEG)
[2024-05-18 07:34] LABS: BILIRUBIN,URINE NEGATIVE (Neg); CLARITY,URINE SLIGHTLY CLOUDY (Clear); COLOR,URINE YELLOW (Yellow); GLUCOSE, URINE NEGATIVE (Neg); KETONES,URINE NEGATIVE (Neg); LEUKOCYTE ESTERASE ,URINE NEGATIVE (Neg); NITRITES, URINE NEGATIVE (Neg); OCCULT BLOOD,URINE NEGATIVE (Neg); PROTEIN,URINE NEGATIVE (Neg); UROBILINOGEN,URINE 0.2 E.U/dL (0.2-1.0)
[2024-05-18 07:38] LABS: UA COLLECTION TYPE VOIDED
[2024-05-18 07:40] LABS: URINE AMPHETAMINE SCREEN POSITIVE (Neg); URINE BARBITUATE SCREEN NEGATIVE (Neg); URINE BENZODIAZEPINES SCREEN NEGATIVE (Neg); URINE CANNABINOID SCREEN NEGATIVE (Neg); URINE COCAINE SCREEN NEGATIVE (Neg); URINE METHADONE SCREEN NEGATIVE (Neg); URINE OPIATE SCREEN NEGATIVE (Neg); URINE PHENCYCLIDINE SCREEN NEGATIVE (Neg)
[2024-05-18 07:45] LABS: BACTERIA,URINE 3+ /HPF (Neg); MUCUS STRANDS FEW /LPF (Neg); RBC,URINE NONE SEEN /HPF (0-2); SQUAMOUS EPITHELIAL CELL,UR MANY /LPF (FEW)
== END 2024-05-18 15:52 | disposition home or self-care (01) ==
LOC: ER 06:11
DX: F29 Unspecified psychosis not due to a substance or known physiological condition (principal); F15.10 Other stimulant abuse, uncomplicated; F12.90 Cannabis use, unspecified, uncomplicated; F31.9 Bipolar disorder, unspecified; Z20.822 Contact with and (suspected) exposure to COVID-19; Z59.00 Homelessness unspecified
CPT/HCPCS: 36415; 80048; 80305; 80320; 81001; 81025; 85025; 87811; 99284

== ENCOUNTER 2024-07-22 22:50 | Emergency (ER) | payer MEDICAID ==
[~2024-07-22] VITALS: Ht 170.2 cm; Wt 56.9 kg
[2024-07-22 23:09] VITALS: BP 112/65; PULSE 101; RESP 17; O2SAT 99
[2024-07-23 00:31] VITALS: TEMP 97.6
--- NOTE | 2024-07-23 03:58 | Physician Documentation ---
History of Present Illness ~ General Chief Complaint: Knee Pain Stated Complaint: LEG PAIN Time Seen by MD: 00:20 Primary Medical Doctor: [facility] Exam Limitations: clinical condition, intoxication History of Present Illness Initial Comments 34-year-old female, who presents with bizarre behavior. Here in the ED, the patient is a limited historian, she appears likely intoxicated with stimulants. When I enter the room she was wearing vomit bags on both of her feet. When I asked her why she was here, she is unable to give me a specific reason. She denies any traumatic injuries today. She does seem to imply that her legs are bruised. She was able to walk. She denies head or neck injury. She denies shortness of breath or abdominal pain. She does not answer when I asked her if she has used any substances today. History somewhat limited due to her presentation Medication Reconciliation Allergies: Coded Allergies: No Known Allergies (Unverified , 07/22/24) Miscellaneous Medications Home Med List (No Home Medications), (Reported) Past Medical History Past Medical History: Renal Disease, UTI, *PSYCH*, Bipolar Past Surgical History: noncontributory Smoking Status: Unknown if ever smoked Alcohol Use: Occasionally Drug Use: marijuana, methamphetamine Lives with: Family Lives In: Home Occupation: employed Review of Systems Unable to obtain complete ROS: altered mental status Physical Exam Physical Exam Vital Signs: Temperature: 97.6, Source: Temporal, Heart Rate: 101, Respiratory Rate: 17, BP: 112/65, Pulse Oximetry: 99, Weight: 56.900 Physical Exam General: This is a thin young female, appears disheveled, lying in bed with vomit bags on both of her feet and her sweater pulled up over her face when I enter the room HEENT: Atraumatic, oropharynx appears dry Heart: Mild tachycardic, appears regular Lungs: Clear breath sounds bilateral, normal work of breathing, normal oxygen saturation on room air Abdomen: Soft, nondistended, nontender all quadrants Extremities: Warm and well-perfused. No significant traumatic findings to the legs, including no significant bruising or pain with full range of motion Neuro: Alert, does not answer orientation questions Psychiatric: Labile affect, makes bizarre statements, appears likely intoxicated on a stimulant Progress Results/Orders Results/Orders Vital Signs 07/22/24 07/23/24 23:09 00:31 Temp 97.6 97.6 Pulse 101 Resp 17 B/P (MAP) 112/65 Pulse Ox 99 Medical Decision Making Additional info obtained from: old records Findings Reviewed past emergency department visits. The patient has a history of methamphetamine use with disorganized behavior Differential Diagnosis Substance abuse, underlying psychiatric illness, muscle pain, dehydration Assessment The patient presents with nonspecific complaints, and per her history and exam, this all appears related to intoxication with methamphetamines. She does not have any evidence of traumatic injury, no evidence of an acute medical or surgical emergency. She does not make any suicidal or homicidal statements or threats. I do not feel that any further workup or testing is indicated at this time. She does not appear to be a danger to herself or others at this time, and so she will be discharged. Departure Disposition: 01 HOME / SELF CARE Impression: Primary Impression: Leg pain Signature Scribe Signature: shira Attestation: SYEDA Huber MD Jul 23, 2024 03:58
== END 2024-07-23 00:32 | disposition home or self-care (01) ==
LOC: ER 22:50
DX: M25.562 Pain in left knee (principal); M25.561 Pain in right knee; F12.90 Cannabis use, unspecified, uncomplicated; F15.90 Other stimulant use, unspecified, uncomplicated; F31.9 Bipolar disorder, unspecified; Z72.89 Other problems related to lifestyle
CPT/HCPCS: 99281

== ENCOUNTER 2024-08-15 18:44 | Emergency (ER) | payer MEDICAID ==
[~2024-08-15] VITALS: Ht 162.6 cm; Wt 75.0 kg
[2024-08-15 19:20] LABS: HCG SERUM QL POSITIVE
--- NOTE | 2024-08-15 19:49 | Physician Documentation ---
History of Present Illness ~ Chief Complaint: Medical Clearance Stated Complaint: MED CLEARANCE Time Seen by MD: 19:45 Primary Medical Doctor: [facility] HPI Patient presents to the emergency room for evaluation brought in by police for m edical clearance. They have released the patient. Currently she is not making much sense. She is . Tetanus within 5 years?: No Medication Reconciliation Allergies: Coded Allergies: No Known Allergies (Unverified , 07/22/24) Miscellaneous Medications Home Med List (No Home Medications), (Reported) Past Medical History Past Medical History: Renal Disease, UTI, *PSYCH*, Bipolar Past Surgical History: noncontributory Alcohol Use: Occasionally Drug Use: marijuana, methamphetamine Lives with: Family Lives In: Home Occupation: employed Physical Exam Vital Signs: Temperature: 98.2, Source: Temporal, Heart Rate: 98, Respiratory Rate: 16, BP: 131/99, Pulse Oximetry: 98, Weight: 75.000 Oxygen Flow Rate: 0 Physical Exam General: Patient is awake, paranoid, no acute distress Head: Normocephalic and atraumatic. Eyes: Conjunctival normal. EOMI. PERRL. ENT: Mucous membranes moist. Neck: Supple, trachea is midline. Chest: Clear to auscultation bilaterally without rales, rhonchi, or wheezes. There is no accessory muscle use or retractions. Cardiac: RRR without murmurs, gallops, or rubs. Abd: Soft, nondistended, gravid Psych: Pressured speech randomly talking Progress Results/Orders Results/Orders Orders - VALERIO THOMAS MD Med Rec (08/15/24 20:02) 1799.11 (08/15/24 20:02) Close Observation Level (08/15/24 20:02) Covid19 Binax Poc Result Entry (08/15/24 20:02) Substance Use Navigator (08/15/24 20:02) Regular Diet (08/16/24 Breakfast) Completed Orders - VALERIO THOMAS MD Hcg Serum Ql (08/15/24 18:50) Cbc/Diff (08/15/24 20:02) Drug Screen, Urine (08/15/24 20:02) Ethanol (08/15/24 20:02) TSH (08/15/24 20:02) BMP (08/15/24 20:02) Lorazepam Tablet (Ativan Tablet) (08/15/24 20:05) Diphenhydramine Capsule (Benadryl Capsul (08/15/24 20:05) Ua With Microscopic (08/16/24 06:21) Medications Received in ER Medications (Trade) Dose Ordered Sig/Florencio Route PRN Reason Start Time Stop Time Status Last Admin Dose Admin (Ativan inj) 2 mg ONCE ONCE IM 08/16/24 17:15 08/16/24 17:18 DC 08/16/24 17:43 2 MG (Geodon IMIM ONLY) 20 mg ONCE ONCE IM 08/16/24 17:15 08/16/24 17:18 DC 08/16/24 17:44 20 MG Vital Signs 08/15/24 08/15/24 08/15/24 08/16/24 18:46 19:00 21:40 06:54 Temp 98.2 Pulse 98 76 Resp 16 18 18 16 B/P (MAP) 131/99 106/67 (80) Pulse Ox 98 98 O2 Flow Rate 0 08/16/24 08/16/24 10:15 14:31 Pulse 80 Resp 14 16 B/P (MAP) Pulse Ox 98 O2 Flow Rate 0 Laboratory Tests Test 08/15/24 19:07 08/16/24 06:21 08/16/24 08:35 White Blood Count 9.1 Red Blood Count 3.18 L Hemoglobin 9.6 L Hematocrit 28.4 L Mean Corpuscular Volume 89.2 Mean Corpuscular Hemoglobin 30.3 Mean Corpuscular Hemoglobin Concent 34.0 Red Cell Distribution Width 15.3 H Platelet Count 352 Mean Platelet Volume 7.2 L Neutrophils (%) (Auto) 55.3 Lymphocytes (%) (Auto) 29.0 Monocytes (%) (Auto) 12.4 H Eosinophils (%) (Auto) 2.8 Basophils (%) (Auto) 0.5 Neutrophils # (Auto) 5.0 Lymphocytes # (Auto) 2.6 Monocytes # (Auto) 1.1 H Eosinophils # (Auto) 0.3 Basophils # (Auto) 0.0 CBC Comment Sodium Level 136 Potassium Level 3.4 L Chloride Level 105 Carbon Dioxide Level 22.5 L Anion Gap 9 Blood Urea Nitrogen 15 Creatinine 0.75 Estimated GFR/1.73 m2 89 BUN/Creatinine Ratio 20.0 Glucose Level 94 Calcium Level 8.4 L Albumin 2.3 L Thyroid Stimulating Hormone (TSH) 4.62 H Human Chorionic Gonadotropin, Qual Positive Chemistry Comments Ethyl Alcohol Level < 10 Urine Specimen Description Non-specified Urine Color Yellow Urine Clarity Cloudy Urine pH 6.0 Urine Specific Sterling 1.020 Urine Protein Negative Urine Glucose (UA) Negative Urine Ketones Trace H Urine Occult Blood Negative Urine Nitrite Positive H Urine Bilirubin Negative Urine Urobilinogen 1.0 Urine Leukocyte Esterase Negative Urine RBC None seen Urine WBC 0-4 Urine Squamous Epithelial Cells Moderate Urine Amorphous Urates 2+ Urine Bacteria 4+ Urine Mucus None seen Volume Urine Centrifuged 10 ml Urine Comment Urine Opiates Screen Negative Urine Methadone Screen Negative Urine Fentanyl Screen Positive H Urine Barbiturates Screen Negative Urine Phencyclidine Screen Negative Urine Amphetamines Screen Positive Urine Benzodiazepines Screen Negative Urine Cocaine Screen Negative Urine Cannabinoids Screen Positive Drug Screen Comment HCG Beta Subunit 96682 Medical Decision Making Findings Patient presented to the emergency room for evaluation brought in by police for medical clearance however she was released from their custody. When trying to speak with the patient she is not making intelligible conversation I do not feel she has capacity. 1799 placed. Labs reassuring however we have not obtain a urine yet and this will be followed up by oncoming physician Additional note by Ryan العلي DO: I took over the care of this patient from previous physician. I reviewed any previous notes available, obtain my own history, review of systems and physical examination was performed by myself. The patient had laboratory studies done. She is mildly anemic. Metabolic panel notable for hypoalbuminemia. She is in fact . UA is nondiagnostic for UTI and is contaminated. She does not require antibiotics. Urine drug screen is positive for THC, fentanyl, amphetamines. The patient's remaining psychotic. Patient is medically cleared [place] psychiatric [place] [address]. That she would be discernible for ultrasound, however the patient is too psychotic for any sort of imaging. She had become belligerent, became danger to self and staff. She required chemical restraints and transient physical restraints. Geodon appears to be a reasonably safe in although some studies are limited. At this point benefits of chemical restraints outweigh risks. Departure Disposition: 30 STILL A PATIENT Impression: Primary Impression: Acute psychosis Additional Impressions: Polysubstance abuse Condition: Guarded Referrals: NO PRIMARY CARE PROVIDER (PCP) Critical Care Note Critical Care Note CRITICAL CARE TIME: [35] minutes Treatments/Evaluations: Close monitoring and treatment of unstable vital signs, cardiorespiratory, and neurologic status, while maintaining tight balance of fluid, respiratory, and cardiac interventions. This time includes discussing the case with the patient and the patients family. This time does not include all procedures stated elsewhere in this record. This time also includes reviewing old records, labs and radiological studies. This time includes examining and re- examining the patient. Additionally, this time also includes arranging care with admitting and consulting physicians. Signature Scribe Signature: No scribe Attestation: The note accurately reflects work and decisions made by me.Valerio Thomas MD 08/16/24 05:59 This note accurately reflects clinical decisions, work performed by myself, Ryan العلي DO 08/16/24 @ 1115 VALERIO THOMAS MD August 15, 2024 19:49 RYAN العلي DO August 16, 2024 07:57
[2024-08-15 20:17] LABS: BASOPHILS % (AUTO) 0.5 % (0-1); EOSINOPHILS # (AUTO) 0.3 X10'3 (0-0.9); EOSINOPHILS % (AUTO) 2.8 % (0-6); HEMATOCRIT 28.4 % (35.0-45.0); HEMOGLOBIN 9.6 g/dl (12.0-16.0); LYMPHOCYTES # (AUTO) 2.6 X10'3 (1.1-4.8); MEAN CORPUSCULAR HEMOGLOBIN 30.3 PG (27.0-31.0); MEAN CORPUSCULAR VOLUME 89.2 FL (78-98); MEAN PLATELET VOLUME 7.2 FL (7.4-10.4); MONOCYTES # (AUTO) 1.1 X10'3 (0-0.9); MONOCYTES % (AUTO) 12.4 % (2-12); NEUTROPHILS % (AUTO) 55.3 % (42-75); PLATELET COUNT 352 X10'3 (140-440); RED BLOOD COUNT 3.18 X10'6 (4.20-5.60); RED CELL DISTRIBUTION WIDTH 15.3 % (11.5-14.5); WHITE BLOOD COUNT 9.1 X10'3 (4.5-11.0)
[2024-08-15 20:36] LABS: ALBUMIN 2.3 G/DL (3.4-5.0); ANION GAP 9 (8-16); BLOOD UREA NITROGEN 15 MG/DL (7-18); CALCIUM 8.4 MG/DL (8.5-10.1); CHLORIDE 105 MMOL/L (99-107); CREATININE 0.75 MG/DL (0.40-0.90); ETHANOL < 10 MG/DL (<10); GLUCOSE 94 MG/DL (70-104); POTASSIUM 3.4 MMOL/L (3.5-5.1); SODIUM 136 MMOL/L (135-145); THYROID STIMULATING HORMONE 4.62 ulU/ml (0.34-4.50); TOTAL CARBON DIOXIDE 22.5 MMOL/L (24-32); eCRCL 92 ML/MIN; eGFR 89 ML/MIN
[2024-08-15] MEDS: diphenhydrAMINE 25mg capsule PO ONE (20:59)
[2024-08-15] MEDS: LORazepam 1 MG tablet PO ONE (20:59)
[2024-08-16 06:51] LABS: BILIRUBIN,URINE NEGATIVE (Neg); CLARITY,URINE CLOUDY (Clear); COLOR,URINE YELLOW (Yellow); GLUCOSE, URINE NEGATIVE (Neg); KETONES,URINE TRACE mg/dl (Neg); LEUKOCYTE ESTERASE ,URINE NEGATIVE (Neg); NITRITES, URINE POSITIVE (Neg); OCCULT BLOOD,URINE NEGATIVE (Neg); PROTEIN,URINE NEGATIVE (Neg)
[2024-08-16 06:58] LABS: URINE AMPHETAMINE SCREEN POSITIVE (Neg); URINE BARBITUATE SCREEN NEGATIVE (Neg); URINE BENZODIAZEPINES SCREEN NEGATIVE (Neg); URINE CANNABINOID SCREEN POSITIVE (Neg); URINE COCAINE SCREEN NEGATIVE (Neg); URINE METHADONE SCREEN NEGATIVE (Neg); URINE OPIATE SCREEN NEGATIVE (Neg); URINE PHENCYCLIDINE SCREEN NEGATIVE (Neg)
[2024-08-16 07:05] LABS: UA COLLECTION TYPE NON-SPECIFIED
[2024-08-16 07:08] LABS: BACTERIA,URINE 4+ /HPF (Neg); MUCUS STRANDS NONE SEEN /LPF (Neg); RBC,URINE NONE SEEN /HPF (0-2); SQUAMOUS EPITHELIAL CELL,UR MODERATE /LPF (FEW); WBC,URINE 0-4 /HPF (0-4)
[2024-08-16 07:10] LABS: AMORPHOUS URATES 2+
[2024-08-16] MEDS: ziprasidone IM 20mg inj **IM only IM ONE ×2 (09:41→17:44)
[2024-08-16] MEDS: LORazepam 2 mg/ml vial IM ONE (17:43)
[2024-08-17] MEDS: LORazepam 2 mg/ml vial IM ONE (09:07)
[2024-08-17] MEDS: ziprasidone IM 20mg inj **IM only IM ONE (09:08)
[2024-08-17] MEDS: diphenhydrAMINE 50 mg/ml inj IM ONE (09:08)
[2024-08-17] MEDS: ziprasidone IM 20mg inj **IM only IM PRN (22:14)
[2024-08-18 10:06] VITALS: BP 108/77; PULSE 106; TEMP 97.9; O2SAT 98
[2024-08-18 14:11] VITALS: RESP 16
== END 2024-08-18 15:45 | disposition home or self-care (01) ==
LOC: ER 18:45
DX: O99.350 Diseases of the nervous system complicating pregnancy, unspecified trimester (principal); F19.10 Other psychoactive substance abuse, uncomplicated; F23 Brief psychotic disorder; F12.90 Cannabis use, unspecified, uncomplicated; F15.90 Other stimulant use, unspecified, uncomplicated; Z72.89 Other problems related to lifestyle; Z20.822 Contact with and (suspected) exposure to COVID-19; Z3A.00 Weeks of gestation of pregnancy not specified
CPT/HCPCS: 36415; 80048; 80305; 80320; 81001; 84443; 84702; 84703; 85025; 86885; 86900; 86901; 87811; 96372; 99285; J2060; J3486; Q0163; 99291

== ENCOUNTER 2024-10-04 20:20 | Emergency (ER) | payer MEDICAID ==
[~2024-10-04] VITALS: Ht 175.3 cm; Wt 75.0 kg
--- NOTE | 2024-10-04 21:54 | Physician Documentation ---
History of Present Illness ~ Chief Complaint: ALOC Stated Complaint: "I NEED A ULTRU SOUND" Time Seen by MD: 21:31 Primary Medical Doctor: [facility] HPI Patient presents to the emergency room with concerns for bilateral foot pain and mumbling other gibberish. History of psychosis. Patient is . Also asking for food. Volatile Medication Reconciliation Allergies: Coded Allergies: No Known Allergies (Unverified , 08/17/24) Miscellaneous Medications Home Med List (No Home Medications), (Reported) Past Medical History Past Medical History: Renal Disease, UTI, *PSYCH*, Bipolar Past Surgical History: noncontributory Alcohol Use: Occasionally Drug Use: marijuana, methamphetamine Lives with: Family Lives In: Home Occupation: employed Review of Systems ROS All review of systems negative except as per HPI Physical Exam Vital Signs: Temperature: 97.6, Heart Rate: 89, Respiratory Rate: 16, BP: 111/64, Pulse Oximetry: 99 Oxygen Flow Rate: 0 Physical Exam General: Patient is sleeping, easily arousable, pressured speech, homeless appearing, gravid Head: Normocephalic and atraumatic. Eyes: Conjunctival normal. EOMI. PERRL. ENT: Mucous membranes moist. Neck: Supple, trachea is midline. Chest: Clear to auscultation bilaterally without rales, rhonchi, or wheezes. There is no accessory muscle use or retractions. Cardiac: RRR without murmurs, gallops, or rubs. Abd: Soft, nondistended, nontender, gravid Psych: Appears psychotic, cooperative, rambling speech Progress Results/Orders Results/Orders Orders - VALERIO THOMAS MD Culture Blood (10/04/24 20:40) Urinalysis, Cult If Indicated (10/04/24 20:40) Monitor (10/04/24 20:40) Saline Lock (10/04/24 20:40) Drug Screen, Urine (10/04/24 20:40) Novel Coronavirus Itzel (10/04/24 20:54) Covid19 Binax Poc Result Entry (10/04/24 22:04) Completed Orders - VALERIO THOMAS MD Cbc/Diff (10/04/24 20:40) CMP (10/04/24 20:40) Procalcitonin (10/04/24 20:40) Lacticsepsis (10/04/24 20:40) Ethanol (10/04/24 20:40) Hcg Serum Ql (10/04/24 20:40) TSH (10/04/24 20:54) Vital Signs 10/04/24 20:25 Temp 97.6 Pulse 89 Resp 16 B/P (MAP) 111/64 Pulse Ox 99 O2 Flow Rate 0 Laboratory Tests Test 10/04/24 20:32 10/04/24 21:57 Glucometer 77 White Blood Count 6.5 Red Blood Count 3.39 L Hemoglobin 9.3 L Hematocrit 28.4 L Mean Corpuscular Volume 83.7 Mean Corpuscular Hemoglobin 27.5 Mean Corpuscular Hemoglobin Concent 32.9 L Red Cell Distribution Width 17.9 H Platelet Count 309 Mean Platelet Volume 7.0 L Neutrophils (%) (Auto) 54.5 Lymphocytes (%) (Auto) 31.0 Monocytes (%) (Auto) 9.3 Eosinophils (%) (Auto) 3.8 Basophils (%) (Auto) 1.4 H Neutrophils # (Auto) 3.5 Lymphocytes # (Auto) 2.0 Monocytes # (Auto) 0.6 Eosinophils # (Auto) 0.2 Basophils # (Auto) 0.1 CBC Comment Sodium Level 137 Potassium Level 3.6 Chloride Level 106 Carbon Dioxide Level 22.7 L Anion Gap 8 Blood Urea Nitrogen 9 Creatinine 0.69 Estimated GFR/1.73 m2 > 90 BUN/Creatinine Ratio 13.0 Glucose Level 67 L Lactic Acid Level 1.3 Calcium Level 8.5 Total Bilirubin 0.3 Aspartate Amino Transf (AST/SGOT) 101 H Alanine Aminotransferase (ALT/SGPT) 71 Alkaline Phosphatase 196 H Total Protein 6.4 Albumin 2.1 L Globulin 4.3 Albumin/Globulin Ratio 0.5 L Procalcitonin 0.05 Thyroid Stimulating Hormone (TSH) 4.46 Human Chorionic Gonadotropin, Qual Positive Chemistry Comments Ethyl Alcohol Level < 10 Medical Decision Making Findings Patient presents to the emergency room frankly psychotic. Labs reviewed and there was no evidence of major pathologic derangements. 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 Patient is medically cleared for mental health evaluation Departure Disposition: 30 STILL A PATIENT Impression: Primary Impression: Additional Impression: Acute psychosis Condition: Guarded Referrals: NO PRIMARY CARE PROVIDER (PCP) Signature Scribe Signature: No scribe Attestation: The note accurately reflects work and decisions made by me.Valerio Thomas MD 10/04/24 22:50 VALERIO THOMAS MD Oct 04, 2024 21:54
[2024-10-04 22:05] LABS: MEAN PLATELET VOLUME 7.0 FL (7.4-10.4); RED CELL DISTRIBUTION WIDTH 17.9 % (11.5-14.5)
[2024-10-04 22:21] LABS: CREATININE 0.69 MG/DL (0.40-0.90); TOTAL CARBON DIOXIDE 22.7 MMOL/L (24-32); eGFR > 90 ML/MIN
[2024-10-04 22:30] LABS: HCG SERUM QL POSITIVE
[2024-10-04 22:31] LABS: ETHANOL < 10 MG/DL (<10)
[2024-10-05] MEDS: ziprasidone IM 20mg inj **IM only IM ONE (02:00)
[2024-10-05 15:21] LABS: LEUKOCYTE ESTERASE ,URINE NEGATIVE (Neg); NITRITES, URINE NEGATIVE (Neg); OCCULT BLOOD,URINE NEGATIVE (Neg)
[2024-10-05 15:28] LABS: UA COLLECTION TYPE NON-SPECIFIED
[2024-10-05 15:41] LABS: URINE AMPHETAMINE SCREEN POSITIVE (Neg); URINE BARBITUATE SCREEN NEGATIVE (Neg); URINE BENZODIAZEPINES SCREEN NEGATIVE (Neg); URINE CANNABINOID SCREEN NEGATIVE (Neg); URINE COCAINE SCREEN NEGATIVE (Neg); URINE METHADONE SCREEN NEGATIVE (Neg); URINE OPIATE SCREEN NEGATIVE (Neg); URINE PHENCYCLIDINE SCREEN NEGATIVE (Neg)
[2024-10-06] MEDS: ziprasidone IM 20mg inj **IM only IM ONE (09:29)
--- NOTE | 2024-10-06 10:38 | RADIOLOGY REPORT ---
LIMITED OB ULTRASOUND > 14 WKS: HISTORY: Assess viability, patient , dates are unknown TECHNIQUE: Multiple real-time grayscale images of the gravid uterus with duplex Doppler color flow an d M-mode spectral analysis. TRANSDUCER: TA FINDINGS: IUP single live fetus at 35 weeks based on composite averages of the BPD, head circumference, abdomi nal circumference and femur length Estimated weight 2489 grams heart rate 161 beats per minute JANICE not seen ceohalic Presentation Grade II fundal Placenta without previa or abruption. IMPRESSION: IUP single live fetus at 35 weeks AUA corresponding to an NELI of 8-
[2024-10-06] MEDS ORDERED: PENICILLIN POTASSIUM IV STA (11:01)
[2024-10-06] MEDS ORDERED: NORMAL SALINE IV STA (11:01)
[2024-10-06 14:34] VITALS: BP 115/89; PULSE 56; RESP 16; TEMP 97.5; O2SAT 96
== END 2024-10-06 12:20 | disposition short-term general hospital (02) ==
LOC: ER 20:22
DX: F23 Brief psychotic disorder (principal); O99.891 Other specified diseases and conditions complicating pregnancy; F12.90 Cannabis use, unspecified, uncomplicated; F15.90 Other stimulant use, unspecified, uncomplicated; Z72.89 Other problems related to lifestyle; Z20.822 Contact with and (suspected) exposure to COVID-19; Z3A.42 42 weeks gestation of pregnancy
CPT/HCPCS: 36415; 76815; 80053; 80305; 80320; 81003; 82948; 83605; 84145; 84443; 84703; 85025; 87040; 87811; 96372; 99291; J2060; J3486; Q0163; 99284

== ENCOUNTER 2024-10-06 14:45 | Emergency (ER) | payer MEDICAID ==
[~2024-10-06] VITALS: Ht 175.3 cm; Wt 65.9 kg
--- NOTE | 2024-10-06 15:42 | Physician Documentation ---
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 Furthermore. It was discovered with the patient's 35 weeks . She then reportedly broke her water. According to the urinalysis her pH was altered. She was then transported from [facility] for evaluation of an acute /labor. After being evaluated at [facility] she was sent back to this ED for further evaluation of psychosis as a was established that is she is not acutely and in labored. Medication Reconciliation Allergies: Coded Allergies: No Known Allergies (Unverified , 08/17/24) Miscellaneous Medications Home Med List (No Home Medications), (Reported) Past Medical History Past Medical History: Renal Disease, UTI, *PSYCH*, Bipolar Past Surgical History: noncontributory Alcohol Use: Occasionally Drug Use: marijuana, methamphetamine Lives with: Family Lives In: Home Occupation: employed Review of Systems All Other Systems at this time: Reviewed and Negative ROS As stated above in the HPI, otherwise all systems are reviewed and negative. Physical Exam Vital Signs: Temperature: 98.6, Source: Temporal, Heart Rate: 95, Respiratory Rate: 15, BP: 132/100, Pulse Oximetry: 97, Weight: 65.910 Oxygen Flow Rate: 0 Physical Exam General: Alert, no apparent distress. Cardiovascular: Regular rate and rhythm, no murmurs. Gastrointestinal: Soft, nontender, . Bowels sounds present. Appears Extremities: Normal range of motion, no deformity. Neurologic: Oriented x4. Psychiatric: Normal mood and affect. Skin: Normal color, warm and dry. No edema, no ecchymosis. Progress Results/Orders Results/Orders Orders - ROBEL REYNOSO NP Med Rec (10/06/24 15:42) 1799.11 (10/06/24 15:42) Close Observation Level (10/06/24 15:42) Covid19 Binax Poc Result Entry (10/06/24 15:42) Substance Use Navigator (10/06/24 15:42) Regular Diet (10/06/24 Dinner) Completed Orders - ROBEL REYNOSO NP Cbc/Diff (10/06/24 15:42) Hcg, Ur Ql (10/06/24 15:42) Drug Screen, Urine (10/06/24 15:42) Ethanol (10/06/24 15:42) TSH (10/06/24 15:42) BMP (10/06/24 15:42) Ua With Microscopic (10/06/24 15:54) CK (10/06/24 15:55) Medications Received in ER Medications (Trade) Dose Ordered Sig/Florencio Route PRN Reason Start Time Stop Time Status Last Admin Dose Admin (Geodon IMIM ONLY) 20 mg ONCE ONCE IM 10/06/24 22:25 10/06/24 22:37 DC 10/06/24 22:40 20 MG Vital Signs 10/06/24 10/06/24 10/06/24 10/06/24 14:54 16:27 19:06 20:05 Temp 98.6 98.6 Pulse 95 74 56 Resp 15 17 12 16 B/P (MAP) 132/100 117/72 (87) 122/76 (91) Pulse Ox 97 96 96 O2 Flow Rate 0 0 10/06/24 20:48 Resp 12 B/P (MAP) Laboratory Tests Test 10/06/24 15:54 10/06/24 15:55 10/06/24 20:52 Urine Specimen Description Non-specified Urine Color Straw Urine Clarity Clear Urine pH 6.5 Urine Specific [place] 1.010 Urine Protein Negative Urine Glucose (UA) Negative Urine Ketones Negative Urine Occult Blood Negative Urine Nitrite Negative Urine Bilirubin Negative Urine Urobilinogen 0.2 Urine Leukocyte Esterase Trace H Urine RBC 0-2 Urine WBC 0-4 Urine Squamous Epithelial Cells Moderate Urine Bacteria Few Volume Urine Centrifuged 10 ml Urine HCG, Qualitative Positive Urine Comment Urine Opiates Screen Negative Urine Methadone Screen Negative Urine Fentanyl Screen Negative Urine Barbiturates Screen Negative Urine Phencyclidine Screen Negative Urine Amphetamines Screen Positive Urine Benzodiazepines Screen Negative Urine Cocaine Screen Negative Urine Cannabinoids Screen Negative Drug Screen Comment White Blood Count 8.9 Red Blood Count 3.65 L Hemoglobin 10.0 L Hematocrit 30.7 L Mean Corpuscular Volume 84.2 Mean Corpuscular Hemoglobin 27.4 Mean Corpuscular Hemoglobin Concent 32.6 L Red Cell Distribution Width 18.1 H Platelet Count 337 Mean Platelet Volume 7.2 L Neutrophils (%) (Auto) 74.1 Lymphocytes (%) (Auto) 15.3 L Monocytes (%) (Auto) 8.5 Eosinophils (%) (Auto) 1.9 Basophils (%) (Auto) 0.2 Neutrophils # (Auto) 6.6 Lymphocytes # (Auto) 1.4 Monocytes # (Auto) 0.8 Eosinophils # (Auto) 0.2 Basophils # (Auto) 0.0 CBC Comment Sodium Level 135 Potassium Level 4.1 Chloride Level 105 Carbon Dioxide Level 23.1 L Anion Gap 7 L Blood Urea Nitrogen 8 Creatinine 0.58 Estimated GFR/1.73 m2 > 90 BUN/Creatinine Ratio 13.8 Glucose Level 75 Calcium Level 8.4 L Total Creatine Kinase 370 H Albumin 1.9 L Thyroid Stimulating Hormone (TSH) 2.48 Chemistry Comments Ethyl Alcohol Level < 10 SARS-CoV-2 Antigen (Rapid) Negative Medical Decision Making Findings Transfer orders for [facility]: At this time there is no evidence of an emergent medical condition that would preclude (admission/transfer) to a psychiatric unit via [facility] for further psychiatric, as well as medical evaluation and treatment. At this time I have no reason to believe that transfer via [facility] would have serious medical compromise in the patient's health. Differential Dx:Considerations: Include: Alcohol abuse, Anxiety, Bipolar disorder, Conversion disorder, Depression, Encephaloathy, Homicidal, Panic disorder, Personality disorder, Schizophrenia, Substance abuse, Suicidal, Other Departure Disposition: 01 HOME / SELF CARE / HOMELESS Impression: Primary Impression: Psychosis Additional Impression: Additional Instructions: Transfer orders for [facility]: At this time there is no evidence of an emergent medical condition that would preclude (admission/transfer) to a psychiatric unit via [facility] protocol for further psychiatric, as well as medical evaluation and treatment. At this time I have no reason to believe that transfer via [facility] would have serious medical compromise in the patient's health. Referrals: NO PRIMARY CARE PROVIDER (PCP) Signature Scribe Signature: f Attestation: Scribed for Robel Reynoso Np by Robel Walker NP . 10/06/24 22:31 ROBEL REYNOSO NP Oct 06, 2024 15:42
[2024-10-06 16:19] LABS: MEAN PLATELET VOLUME 7.2 FL (7.4-10.4); RED CELL DISTRIBUTION WIDTH 18.1 % (11.5-14.5)
[2024-10-06 16:31] LABS: URINE HCG POSITIVE (NEG)
[2024-10-06 16:34] LABS: LEUKOCYTE ESTERASE ,URINE TRACE (Neg); NITRITES, URINE NEGATIVE (Neg); OCCULT BLOOD,URINE NEGATIVE (Neg)
[2024-10-06 16:37] LABS: URINE AMPHETAMINE SCREEN POSITIVE (Neg); URINE BARBITUATE SCREEN NEGATIVE (Neg); URINE BENZODIAZEPINES SCREEN NEGATIVE (Neg); URINE CANNABINOID SCREEN NEGATIVE (Neg); URINE COCAINE SCREEN NEGATIVE (Neg); URINE METHADONE SCREEN NEGATIVE (Neg); URINE OPIATE SCREEN NEGATIVE (Neg); URINE PHENCYCLIDINE SCREEN NEGATIVE (Neg)
[2024-10-06 16:39] LABS: UA COLLECTION TYPE NON-SPECIFIED
[2024-10-06 16:41] LABS: CREATININE 0.58 MG/DL (0.40-0.90); ETHANOL < 10 MG/DL (<10); TOTAL CARBON DIOXIDE 23.1 MMOL/L (24-32); eCRCL 144 ML/MIN; eGFR > 90 ML/MIN
[2024-10-06 16:43] LABS: SQUAMOUS EPITHELIAL CELL,UR MODERATE /LPF (FEW)
[2024-10-06 19:06] VITALS: TEMP 98.6
[2024-10-06 20:05] VITALS: BP 122/76; PULSE 56; O2SAT 96
[2024-10-06 20:48] VITALS: RESP 12
[2024-10-06] MEDS: ziprasidone IM 20mg inj **IM only IM ONE (22:40)
[2024-10-07] MEDS: ziprasidone IM 20mg inj **IM only IM ONE (10:23)
--- NOTE | 2024-10-07 12:29 | RADIOLOGY REPORT ---
OB ULTRASOUND <14 WEEKS: HISTORY: amniotic fluid TECHNIQUE: Multiple real-time grayscale sonographic images of the pelvis with duplex Doppler color f low, spectral and M-mode analysis. TRANSDUCERS: Transabdominal COMPARISON: US US OB on DOS: 10/06/24 Findings/ IMPRESSION: Limited sonographic exam. JANICE 7.6 cm heart rate 152 beats per minute Cervix measures 6.2 cm.
== END 2024-10-07 17:37 | disposition home or self-care (01) ==
LOC: ER 14:46
DX: O99.343 Other mental disorders complicating pregnancy, third trimester (principal); F29 Unspecified psychosis not due to a substance or known physiological condition; F12.90 Cannabis use, unspecified, uncomplicated; F15.90 Other stimulant use, unspecified, uncomplicated; Z72.89 Other problems related to lifestyle; Z3A.35 35 weeks gestation of pregnancy; Z20.822 Contact with and (suspected) exposure to COVID-19
CPT/HCPCS: 36415; 76815; 80048; 80305; 80320; 81001; 81025; 82550; 84443; 85025; 87811; 96372; 99285; J3486

== ENCOUNTER 2024-10-14 11:48 | Emergency (ER) | payer MEDICAID ==
[~2024-10-14] VITALS: Ht 175.3 cm; Wt 61.2 kg
[2024-10-14 11:52] VITALS: BP 116/66; PULSE 75; RESP 15; TEMP 97; O2SAT 98
--- NOTE | 2024-10-14 12:50 | Physician Documentation ---
History of Present Illness ~ General Chief Complaint: See Chief Complaint Stated Complaint: REQUESTING SONOGRAM Time Seen by MD: 11:58 Primary Medical Doctor: NONE Source: patient Mode of Arrival: Ambulatory Exam Limitations: no limitations History of Present Illness Initial Comments 34-year-old female and 3rd trimester denies any acute medical concerns but desires a CT scan with contrast. Patient denies any abdominal pain contractions and denies any OB care. Medication Reconciliation Allergies: Coded Allergies: No Known Allergies (Unverified , 08/17/24) Miscellaneous Medications Home Med List (No Home Medications), (Reported) Past Medical History Past Medical History: Renal Disease, UTI, *PSYCH*, Bipolar Past Surgical History: noncontributory Alcohol Use: Occasionally Drug Use: marijuana, methamphetamine Lives with: Family Lives In: Home Occupation: employed Review of Systems All Other Systems at this time: Reviewed and Negative Physical Exam Physical Exam Vital Signs: RN Vital Signs have been reviewed: Yes, Temperature: 97.0, Source: Temporal, Heart Rate: 75, Respiratory Rate: 15, BP: 116/66, Pulse Oximetry: 98, Weight: 61.200 Physical Exam General: Alert, no apparent distress. Respiratory: Lungs clear, no respiratory distress. Chest: No accessory muscle use. Cardiovascular: Regular rate and rhythm, no murmurs. Extremities: Normal range of motion, no deformity. Neurologic: Oriented x4. Psychiatric: Agitated and cursing Skin: Normal color, warm and dry. No edema, no ecchymosis. Progress Results/Orders Results/Orders Vital Signs 10/14/24 11:52 Temp 97.0 Pulse 75 Resp 15 B/P (MAP) 116/66 Pulse Ox 98 Medical Decision Making Findings Patient called triage nurse myself multiple names because we would not give her a CT with contrast which was indicated by her pretending to inject something into her EC. Patient denied any acute concerns or reasons why she needed the CT scan. Patient left triage and walked out of the ER Departure Time of Disposition: 12:49 Disposition: 01 HOME / SELF CARE / HOMELESS Impression: Primary Impression: General medical exam Condition: Stable Referrals: NO PRIMARY CARE PROVIDER (PCP) Education Educated: Patient Educated regarding: diagnosis, treatment, need for follow up Signature Scribe Signature: No scribe Attestation: The note accurately reflects work and decisions made by me.Iva ROJO 10/14/24 12:50 IVA FUNES NP Oct 14, 2024 12:50
== END 2024-10-14 11:59 | disposition left against medical advice (07) ==
LOC: ER 11:49
DX: Z00.00 Encounter for general adult medical examination without abnormal findings (principal); F12.90 Cannabis use, unspecified, uncomplicated; F31.9 Bipolar disorder, unspecified; F15.90 Other stimulant use, unspecified, uncomplicated; Z72.89 Other problems related to lifestyle
CPT/HCPCS: 99282

== ENCOUNTER 2024-10-20 08:49 | Emergency (ER) | payer MEDICAID ==
[~2024-10-20] VITALS: Ht 162.6 cm; Wt 70.5 kg
--- NOTE | 2024-10-20 09:06 | Physician Documentation ---
History of Present Illness ~ Chief Complaint: Mental Health Eval Stated Complaint: PSYCHOSIS Time Seen by MD: 08:52 Primary Medical Doctor: NONE HPI This 34-year-old female well known to the ED presents stating she is "hungry and would like to visit the cafeteria".According To EMS, she was found talking to herself with nonsensical language without any clothes on Neck it on the street. Currently 37 weeks . Habitual meth use Medication Reconciliation Allergies: Coded Allergies: No Known Allergies (Unverified , 10/20/24) Miscellaneous Medications Home Med List (No Home Medications), (Reported) Past Medical History Past Medical History: Renal Disease, UTI, *PSYCH*, Bipolar Past Surgical History: noncontributory Alcohol Use: Occasionally Drug Use: marijuana, methamphetamine Lives with: Family Lives In: Home Occupation: employed Review of Systems All Other Systems at this time: Reviewed and Negative ROS As stated above in the HPI, otherwise all systems are reviewed and negative. Physical Exam Vital Signs: Weight: 70.450 Physical Exam General: Alert, no apparent distress. Respiratory: Lungs clear, no respiratory distress. Cardiovascular: Regular rate and rhythm, no murmurs. Gastrointestinal: Soft, nontender, nondistended. Bowels sounds present. Neurologic: Oriented x4. Psychiatric: Normal mood and affect. Skin: Normal color, warm and dry. No edema, no ecchymosis. Progress Results/Orders Results/Orders Vital Signs 10/20/24 09:13 Resp 18 B/P (MAP) Medical Decision Making Findings 34-year-old female received sandwiches and drank then we came agitated throwing remaining food at staff. Security at bedside patient left on her own volition Differential Dx:Considerations: Include: Alcohol abuse, Anxiety, Bipolar disorder, Conversion disorder, Depression, Encephaloathy, Homicidal, Panic disorder, Personality disorder, Schizophrenia, Substance abuse, Suicidal, Other Departure Disposition: 01 HOME / SELF CARE / HOMELESS Impression: Primary Impression: Mental disorder Additional Impression: Third trimester Referrals: NO PRIMARY CARE PROVIDER (PCP) Signature Scribe Signature: v Attestation: Scribed for Robel Reynoso [employer] by Robel Walker NP . 10/20/24 18:01 ROBEL REYNOSO NP Oct 20, 2024 09:06
[2024-10-20 09:13] VITALS: RESP 18
== END 2024-10-20 09:41 | disposition home or self-care (01) ==
LOC: ER 08:50
DX: O99.323 Drug use complicating pregnancy, third trimester (principal); F31.9 Bipolar disorder, unspecified; F12.90 Cannabis use, unspecified, uncomplicated; F15.90 Other stimulant use, unspecified, uncomplicated; Z72.89 Other problems related to lifestyle; Z3A.37 37 weeks gestation of pregnancy
CPT/HCPCS: 99283

== ENCOUNTER 2024-10-22 04:40 | Emergency (ER) | payer MEDICAID ==
[~2024-10-22] VITALS: Ht 170.2 cm; Wt 68.5 kg
--- NOTE | 2024-10-22 06:09 | Physician Documentation ---
History of Present Illness ~ Chief Complaint: See Chief Complaint Stated Complaint: POSSIBLE COMPLICATION Time Seen by MD: 06:01 Primary Medical Doctor: NONE Source: patient Mode of Arrival: Ambulatory Exam Limitations: no limitations HPI Chief Complaint: When asked why she came to the ER this morning she states I am hungry. Earlier she was complaining that she was in labor. Caveat: Methamphetamine psychosis Independent Historians: None History of Present Illness: Review of systems: All systems were reviewed and are negative except for what is indicated in the history of present illness. Past Medical History: Past Surgical History: Social History: Medications: Reviewed as documented Nursing Notes Allergies: Reviewed as documented in Nursing Notes Medication Reconciliation Allergies: Coded Allergies: No Known Allergies (Unverified , 10/22/24) Miscellaneous Medications Home Med List (No Home Medications), (Reported) Past Medical History Past Medical History: Renal Disease, UTI, *PSYCH*, Bipolar Past Surgical History: noncontributory Alcohol Use: Occasionally Drug Use: marijuana, methamphetamine Lives with: Family Lives In: Home Occupation: employed Physical Exam Physical Exam Vital Signs: Temperature: 98.4, Heart Rate: 61, Respiratory Rate: 16, BP: 132/73, Pulse Oximetry: 100, Weight: 68.550 Oxygen Flow Rate: 0 Progress Results/Orders Results/Orders Orders - YOVANNY BRAGA MD Po Challenge (10/22/24 06:09) US OB (10/22/24 06:20) Completed Orders - YOVANNY BRAGA MD OB (10/22/24 06:20) Vital Signs 10/22/24 10/22/24 05:00 07:32 Temp 98.4 Pulse 61 Resp 16 17 B/P (MAP) 132/73 Pulse Ox 100 O2 Flow Rate 0 Laboratory Tests Test 10/22/24 07:25 Urine Specimen Description Cln catch midstream Urine Color Yellow Urine Clarity Slightly cloudy Urine pH 6.0 Urine Specific [place] 1.025 Urine Protein Negative Urine Glucose (UA) Negative Urine Ketones Negative Urine Occult Blood Negative Urine Nitrite Negative Urine Bilirubin Negative Urine Urobilinogen 0.2 Urine Leukocyte Esterase Trace H Urine RBC 0-2 Urine WBC 0-4 Urine Squamous Epithelial Cells Many Urine Bacteria Few Urine Yeast Few Urine Culture Indicated Rejected for culture Volume Urine Centrifuged 10 ml Urine Comment Urine Opiates Screen Negative Urine Methadone Screen Negative Urine Fentanyl Screen Negative Urine Barbiturates Screen Negative Urine Phencyclidine Screen Negative Urine Amphetamines Screen Positive Urine Benzodiazepines Screen Negative Urine Cocaine Screen Negative Urine Cannabinoids Screen Positive Drug Screen Comment Departure Time of Disposition: 08:56 Disposition: 01 HOME / SELF CARE / HOMELESS Impression: Primary Impression: Third trimester Additional Impression: Methamphetamine abuse Condition: Stable Discharge Instructions: Methamphetamines Use Disorder, Third Trimester of , [id number] Additional Instructions: YOU MUST BE GOING TO [facility] WHEN YOU HAVE LABOR CONTRACTIONS, RUPTURE OF MEMBRANES OR VAGINAL BLEEDING Referrals: NO PRIMARY CARE PROVIDER (PCP) Education Educated: Patient Educated regarding: diagnosis, treatment YOVANNY BRAGA MD Oct 22, 2024 06:09
[2024-10-22 07:51] LABS: LEUKOCYTE ESTERASE ,URINE TRACE (Neg); NITRITES, URINE NEGATIVE (Neg); OCCULT BLOOD,URINE NEGATIVE (Neg)
[2024-10-22 07:52] LABS: UA COLLECTION TYPE CLN CATCH MIDSTREAM
[2024-10-22 08:00] LABS: SQUAMOUS EPITHELIAL CELL,UR MANY /LPF (FEW)
[2024-10-22 08:01] LABS: YEAST FEW /HPF (NEGATIVE)
[2024-10-22 08:10] LABS: URINE AMPHETAMINE SCREEN POSITIVE (Neg); URINE BARBITUATE SCREEN NEGATIVE (Neg); URINE BENZODIAZEPINES SCREEN NEGATIVE (Neg); URINE CANNABINOID SCREEN POSITIVE (Neg); URINE COCAINE SCREEN NEGATIVE (Neg); URINE METHADONE SCREEN NEGATIVE (Neg); URINE OPIATE SCREEN NEGATIVE (Neg); URINE PHENCYCLIDINE SCREEN NEGATIVE (Neg)
[2024-10-22 09:15] VITALS: BP 130/74; PULSE 88; RESP 16; TEMP 98.3; O2SAT 98
--- NOTE | 2024-10-22 10:11 | RADIOLOGY REPORT ---
EXAM: US US OB HISTORY: 37 weeks TECHNIQUE: Multiple real-time grayscale images of the gravid uterus with duplex Doppler color flow an d M-mode spectral analysis. COMPARISON: US US OB on DOS: 10/07/24, US US OB on DOS: 10/06/24 FINDINGS: IUP single live fetus at average ultrasound age (AUA) based on composite averages of the BPD, head c ircumference, abdominal circumference and femur length MEASUREMENTS: BPD: 8 cm cm GA: 32 w 3 d HC: 31 cm GA: 33 w 3d AC: 30 cm GA: 33w 3d FL: 6 cm GA: 32w 5d Estimated weight 2137 grams; 4 lbs 11 oz, heart rate 188 beats per minute JANICE 8 cm, ANATOMIC SURVEY: anatomic survey not performed. UMBILICAL ARTERY DOPPLER: Umbilical cord analysis demonstrates no reversal of flow and no diminished flow. Pulsatility index, resistive index and S/D ratio are within 50-95th percentile. IMPRESSION: 1. IUP single live fetus at 33 AUA corresponding to an NELI of 9-25. 2. survey not performed.
== END 2024-10-22 09:19 | disposition home or self-care (01) ==
LOC: ER 04:41
DX: O99.323 Drug use complicating pregnancy, third trimester (principal); F15.10 Other stimulant abuse, uncomplicated; F12.90 Cannabis use, unspecified, uncomplicated; F15.90 Other stimulant use, unspecified, uncomplicated; F31.9 Bipolar disorder, unspecified; Z72.89 Other problems related to lifestyle
CPT/HCPCS: 76805; 80305; 81001; 99284

== ENCOUNTER 2024-10-22 16:36 | Emergency (ER) | payer MEDICAID ==
[~2024-10-22] VITALS: Ht 175.3 cm; Wt 67.4 kg
[2024-10-22 16:45] VITALS: BP 126/75; PULSE 82; RESP 16; TEMP 98.1; O2SAT 100
--- NOTE | 2024-10-22 17:58 | Physician Documentation ---
History of Present Illness ~ Chief Complaint: Complications Stated Complaint: "I AM " OK to notify your PCP?: Yes Primary Medical Doctor: NONE Source: patient Mode of Arrival: POV Exam Limitations: no limitations HPI 34-year-old female presents for the 2nd time today for her . She den ies any cramping, contractions, vaginal bleed or related symptoms at this time. She is requesting to know if it is a boy or a girl. I asked if she had an ultrasound done already and she denied. She states that last menstrual cycle was 10 months ago. She admits to methamphetamine use. On records review she was seen earlier today by Dr. Yu and had an ultrasound showing she is 33 weeks . Medication Reconciliation Allergies: Coded Allergies: No Known Allergies (Unverified , 10/22/24) Miscellaneous Medications Home Med List (No Home Medications), (Reported) Past Medical History Past Medical History: Renal Disease, UTI, *PSYCH*, Bipolar Past Surgical History: noncontributory Alcohol Use: Occasionally Drug Use: marijuana, methamphetamine Lives with: Family Lives In: Home Occupation: employed Review of Systems All Other Systems at this time: Reviewed and Negative Physical Exam Physical Exam Vital Signs: RN Vital Signs have been reviewed: Yes, Temperature: 98.1, Source: Temporal, Heart Rate: 82, Respiratory Rate: 16, BP: 126/75, Pulse Oximetry: 100, Weight: 67.400 Oxygen Flow Rate: 0 Pulse Oximetry Reflects: adequate oxygenation Physical Exam General: Alert, no apparent distress. HEENT: PERRL, EOMI, no injection, moist mucous membranes. Neck: Full range of motion. Respiratory: Lungs clear, no respiratory distress. Chest: No accessory muscle use. Cardiovascular: Regular rate and rhythm, no murmurs. Gastrointestinal: Soft, nontender. Bowels sounds present. Abdomen distended. Extremities: Normal range of motion, no deformity. Neurologic: Oriented x4. Psychiatric: Normal mood and affect. Skin: Normal color, warm and dry. No edema, no ecchymosis. Progress Results/Orders Results/Orders Vital Signs 10/22/24 16:45 Temp 98.1 Pulse 82 Resp 16 B/P (MAP) 126/75 Pulse Ox 100 O2 Flow Rate 0 Medical Decision Making Findings Eloped after MSE. Departure Disposition: LEFT AWOL/ELOPED Impression: Primary Impression: Eloped from emergency department Referrals: NO PRIMARY CARE PROVIDER (PCP) Additional Comment Medical Screen Exam This patient recieved a medical screening examination. After reviewing the individual's medical complaints with presenting symptoms and performing an appropriate physical examination, it was determined that no immediate life- threatening emergency medical condition is present. This individual is also not a women having contractions. Signature Scribe Signature: . Attestation: Scribed for Emergency,Department by Urmila Walker NP . 10/22/24 17:58 Parts of this note were created using [employer] voice recognition software program. While efforts were made to correct any mistakes made by this voice recognition software program, nonsensical phrases may remain in this note. In addition, there may be errors and syntax, grammar, content and spelling. URMILA HARRIS [facility] Oct 22, 2024 17:58
== END 2024-10-22 18:43 | disposition left against medical advice (07) ==
LOC: ER 16:37
DX: O99.323 Drug use complicating pregnancy, third trimester (principal); F12.90 Cannabis use, unspecified, uncomplicated; Z87.440 Personal history of urinary (tract) infections; Z3A.33 33 weeks gestation of pregnancy
CPT/HCPCS: 99282